=== PATIENT | female | born 1935 | race Caucasian/White ===

== ENCOUNTER → 2019-07-25 11:19 | Outpatient (CLI) | payer MEDICARE, SELFPAY ==
--- NOTE | ~2019-07-25 | DEXA_ITS ---
Bone Density Report Name: Alina Umaña Age: 83 Sex: Female Ethnicity: White Date of : 1935 Indication: postmenopausal osteoporosis; height loss; hysterectomy; Referring Provider: RO RAINES Study: Bone densitometry was performed. Exam Date: July 25, 2019 Accession number: [id number] Bone Density: Region BMD T-score Z-score Classification AP Spine (L1-L4) 0.864 -1.7 1.2 Osteopenia Femoral Neck (Left) 0.527 -2.9 -0.4 Osteoporosis Total Hip (Left) 0.607 -2.7 -0.5 Osteoporosis Femoral Neck (Right) 0.536 -2.8 -0.4 Osteoporosis Total Hip (Right) 0.625 -2.6 -0.3 Osteoporosis Total Hip Mean 0.616 -2.7 -0.4 Osteoporosis World Health Organization criteria for BMD impression classify patients as: Normal (T-score at or above -1.0), Osteopenia (T-score between -1.0 and -2.5), or Osteoporosis (T-score at or below -2.5). 10-year Fracture Risk: FRAX not reported because: Some T-score for Spine Total or Hip Total or Femoral Neck at or below -2.5 Previous Exams: Region Exam Age BMD T-score BMD Change BMD Change Date g/cm2 vs Baseline vs Previous AP Spine(L1-L4) 07/25/2019 83 0.864 -1.7 -0.028* -0.028* 04/11/2016 80 0.891 -1.4 Total Hip(Left) 07/25/2019 83 0.607 -2.7 -0.026 -0.026 04/11/2016 80 0.633 -2.5 Total Hip(Right) 07/25/2019 83 0.625 -2.6 -0.030* -0.030* 04/11/2016 80 0.656 -2.3 *Denotes significance at 95% confidence level, LSC for AP Spine = 0.022 g/cm2, LSC for Total Hip = 0.027 g/cm2 Clinical Information Provided by Patient: Has used the following medications: Vitamin D Has the following medical conditions: Hysterectomy Patient maximum height was 66 Menopause Age: 47 No regular weight bearing exercise Onset of menses at age 13 Number of children 0 Impression: The patient has osteoporosis, based on the Left Femoral Neck T-score. The BMD for the AP Spine(L1-L4) decreased, changing by -0.028 since the last DXA exam. The BMD for the Total Hip(Right) decreased, changing by -0.030 since the last DXA exam. Discussion: INCREASED RISK OF FRACTURE. BONE DENSITY IS UNDESIRABLY LOW AT ONE OR MORE SKELETAL SITES, CONSISTENT WITH POSTMENOPAUSAL OSTEOPOROSIS. This patient's lowest T-score meets the World Health Organization's (WHO) criteria for osteoporosis at one or more sites (T-score -2.5 or below). In untreated patients, the risk of osteoporotic fracture increases approximately
== END ==
PROVIDERS: PCP Internal Medicine; Visit Provider Nurse Practitioner
DX: M81.0 Age-related osteoporosis without current pathological fracture (principal); M85.88 Other specified disorders of bone density and structure, other site
CPT/HCPCS: 77080

== ENCOUNTER 2020-04-15 12:16 | Outpatient (CLI) | payer MEDICARE, SELFPAY ==
--- NOTE | ~2020-04-15 | MM_ITS ---
EXAMINATION: MM screening regina LT w astrid HISTORY: Screening TECHNIQUE: Craniocaudal and mediolateral oblique 3-D tomosynthesis images were obtained and synthetic 2-D images were generated. CAD analysis was submitted and interpreted. COMPARISON: Comparison to multiple prior studies sequentially, with oldest reviewed study dated 02/24. BREAST PARENCHYMAL COMPOSITION: There are scattered areas of fibroglandular density. FINDINGS: There is no evidence of suspicious mass, calcification, or architectural distortion to sugg est malignancy in the left breast. There has been no suspicious interval change. IMPRESSION: 1. No mammographic evidence of malignancy. 2. Recommend routine screening mammography in one year. BI-RADS Category 1: Negative Reviewed, dictated and finalized at location A. F DRIER
== END 2020-04-15 12:17 | disposition home or self-care (01) ==
PROVIDERS: PCP Internal Medicine; Visit Provider Internal Medicine
DX: Z12.31 Encounter for screening mammogram for malignant neoplasm of breast (principal)
CPT/HCPCS: 77063; 77067

== ENCOUNTER 2021-06-08 15:19 | Outpatient (CLI) | payer MEDICARE, SELFPAY ==
--- NOTE | ~2021-06-08 | MM_ITS ---
EXAMINATION: MM screening regina LT w astrid HISTORY: Screening TECHNIQUE: Craniocaudal and mediolateral oblique 3-D tomosynthesis images were obtained and synthetic 2-D images were generated. CAD analysis was submitted and interpreted. COMPARISON: Comparison to multiple prior studies sequentially, with oldest reviewed study dated 02/24. BREAST PARENCHYMAL COMPOSITION: There are scattered areas of fibroglandular density. FINDINGS: There are surgical changes in the upper outer quadrant. There is no evidence of suspicious mass, calcification, or architectural distortion to suggest malignancy in the left breast. There has been no suspicious interval change. IMPRESSION: 1. No mammographic evidence of malignancy. 2. Recommend routine screening mammography in one year. BI-RADS Category 2: Benign finding(s). Reviewed, dictated and finalized at location A. [employer] SUPERVISOR
== END 2021-06-08 15:20 | disposition home or self-care (01) ==
LOC: ANHIMG 15:21
PROVIDERS: PCP Internal Medicine; Visit Provider Nurse Practitioner
DX: Z12.31 Encounter for screening mammogram for malignant neoplasm of breast (principal)
CPT/HCPCS: 77063; 77067

== ENCOUNTER → 2022-04-21 09:52 | Outpatient (CLI) | payer MEDICARE, SELFPAY ==
--- NOTE | ~2022-04-21 | DEXA_ITS ---
Bone Density Report Name: KASHIF GABRIEL Age: 86 Sex: Female Ethnicity: White Date of : 1935 Indication: postmenopausal osteoporosis; monitoring treatment; height loss; hysterectomy; Referring Provider: Batsheva Hernandez Study: Bone densitometry was performed. Exam Date: April 21, 2022 Accession number: [id number] Bone Density: Region BMD T-score Z-score Classification AP Spine (L1-L4) 0.881 -1.5 1.4 Osteopenia Femoral Neck (Left) 0.531 -2.9 -0.3 Osteoporosis Total Hip (Left) 0.628 -2.6 -0.2 Osteoporosis Femoral Neck (Right) 0.549 -2.7 -0.2 Osteoporosis Total Hip (Right) 0.623 -2.6 -0.3 Osteoporosis Total Hip Mean 0.626 -2.6 -0.3 Osteoporosis World Health Organization criteria for BMD impression classify patients as: Normal (T-score at or above -1.0), Osteopenia (T-score between -1.0 and -2.5), or Osteoporosis (T-score at or below -2.5). 10-year Fracture Risk: FRAX not reported because: Some T-score for Spine Total or Hip Total or Femoral Neck at or below -2.5 Treated for osteoporosis Previous Exams: Region Exam Age BMD T-score BMD Change BMD Change Date g/cm2 vs Baseline vs Previous AP Spine(L1-L4) 04/21/2022 86 0.881 -1.5 -0.010 0.018 07/25/2019 83 0.864 -1.7 -0.028* -0.028* 04/11/2016 80 0.891 -1.4 Total Hip(Left) 04/21/2022 86 0.628 -2.6 -0.005 0.021 07/25/2019 83 0.607 -2.7 -0.026 -0.026 04/11/2016 80 0.633 -2.5 Total Hip(Right) 04/21/2022 86 0.623 -2.6 -0.033* -0.002 07/25/2019 83 0.625 -2.6 -0.030* -0.030* 04/11/2016 80 0.656 -2.3 *Denotes significance at 95% confidence level, LSC for AP Spine = 0.022 g/cm2, LSC for Total Hip = 0.027 g/cm2 Clinical Information Provided by Patient: Is being treated for osteoporosis Has used the following medications: Fosamax (i.e. alendronate), Vitamin D Has the following medical conditions: Hysterectomy, HX OF RIGHT BREAST CA MASTECTOMY -2014 WITH TAMOXIFEN Patient maximum height was 66.0 Menopause Age: 47 No regular weight bearing exercise Onset of menses at age 13 Number of children 0 Impression: The patient has osteoporosis, based on the Left Femoral Neck T-score. No significant bone loss was observed. Discussion: PATIENT UNDER TREATMENT WITH NO SIGNIFICANT BMD LOSS SINCE LAST EXAM. In an untreated patient, BMD typically declines with age. A lack
== END ==
PROVIDERS: PCP Internal Medicine; Visit Provider Nurse Practitioner
DX: M81.0 Age-related osteoporosis without current pathological fracture (principal); M85.88 Other specified disorders of bone density and structure, other site
CPT/HCPCS: 77080

== ENCOUNTER 2024-01-31 13:51 | Outpatient (CLI) | payer MEDICARE, SELFPAY ==
[2024-01-31 18:50] LABS: Basophils Absolute Auto 0.1 K/mm3 (0.0-0.1); Basophils Percent Auto 1.2 % (0.2-1.2); Eosinophils Absolute Auto 0.3 K/mm3 (0-0.3); Eosinophils Percent Auto 4.2 % (0-4.4); Hematocrit 44.4 % (37.0-47.0); Hemoglobin 14.2 g/dL (12.0-15.0); Immature Granulocyte Absolute 0.02 K/mm3 (0.00-0.031); Immature Granulocyte Percent A 0.3 % (0-0.5); Lymphocytes Absolute Auto 1.44 K/mm3 (0.9-3.2); Lymphocytes Percent Auto 24.4 % (18.3-44.2); Mean Corpuscular Hemoglobin 29.7 pg (26-34); Mean Corpuscular Volume 92.9 fl (80-100); Mean Platelet Volume 9.6 fl (7.4-10.4); Monocytes Absolute Auto 0.7 K/mm3 (0.1-0.6); Monocytes Percent Auto 12.4 % (2.6-8.5); Neutrophils Absolute Auto 3.4 K/mm3 (1.3-6.7); Neutrophils Percent Auto 57.5 % (45.5-73.1); Platelet Count Result 234 k/mm3 (150-375); Red Blood Count 4.78 M/mm3 (4.2-5.4); Red Cell Distribution Width 14.4 % (11.5-14.5); White Blood Count 5.9 K/mm3 (4.5-10.0)
[2024-01-31 19:22] LABS: Alanine Aminotransferase 15 U/L (6-35); Albumin Level 4.1 g/dL (3.5-5.1); Alkaline Phosphatase 76 U/L (38-126); Anion Gap 7 mmol/L (4-12); Aspartate Amino Transferase 48 U/L (14-36); Bilirubin,Total 0.7 mg/dL (0.2-1.3); Blood Urea Nitrogen 18 mg/dL (7-17); Calcium 9.7 mg/dL (8.4-10.2); Carbon Dioxide 32 mmol/L (22-30); Chloride 101 mmol/L (98-107); Estimated Glomerular Filt Rate 59; Glucose 110 mg/dL (65-110); Potassium 4.3 mmol/L (3.4-5.0); Sodium 140 mmol/L (137-145)
[2024-01-31 19:29] LABS: Vitamin D 25 Hydroxy 44.4 ng/mL
== END 2024-01-31 13:52 | disposition home or self-care (01) ==
LOC: ANHGOSHLAB 13:53
PROVIDERS: PCP Internal Medicine; Visit Provider Nurse Practitioner
DX: E55.9 Vitamin D deficiency, unspecified (principal); I10 Essential (primary) hypertension
CPT/HCPCS: 36415; 80053; 82306; 85025

== ENCOUNTER 2024-05-30 12:40 | Observation (INO) | payer MEDICARE, SELFPAY ==
[2024-05-30] VITALS (19 sets, daily range): BP systolic 141–197; BP diastolic 68–95; PULSE 53–90; RESP 11–19; TEMP 36.2–36.8; O2SAT 98–100; BMI 19.1
--- NOTE | ~2024-05-30 | XR_ITS ---
Clinical Indication: Syncope PA and lateral views of the chest: Comparison: 07/23/2014 Findings: The lungs are clear, without evidence of focal consolidation or pleural effusion. COPD will swati. Calcified left midlung granuloma noted. Cardiomediastinal silhouette is within normal limits. Mesfin jodee and soft tissues are unremarkable. Impression: No acute abnormality. COPD. Reviewed, dictated and finalized at location M. WARE PACKAGER Impression: No acute abnormality. COPD.
--- NOTE | ~2024-05-30 | CT_ITS ---
EXAMINATION: CT brain wo con DATE: 05/30/2024 23:50 INDICATION: Syncope. TECHNIQUE: Computed tomography (CT) of the head was performed without intravenous contrast. The mA wa s adjusted according to patient size. Iterative reconstruction technique was employed. The dose-lengt h product was 681.00 mGy-cm. COMPARISON: Head CT 07/23/2014 FINDINGS: There are scattered areas of low attenuation in the cerebral white matter, which is within normal limits for the patient's age. There are old lacunar infarcts in the bilateral basal ganglia. There is no intracranial hemorrhage, acute infarction, or abnormal intracranial mass lesion. The vent ricles are normal in size. There is mild mucosal thickening in the paranasal sinuses. There are surgi henrry changes of the right ocular globe. The mastoid air cells are normal. IMPRESSION: 1. 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 Reviewed, dictated and finalized at location A. WARE MANAGER
--- NOTE | 2024-05-30 12:44 | ECG_ITS ---
Test Date: 2024-05-30 12:58:54 Measurements Intervals [place] Rate: 54 P: 0 NE: 0 QRS: -16 QRSD: 82 T: 45 QT: 465 QTc: 443 Interpretive Statements SINUS BRADYCARDIA NONSPECIFIC T WAVE ABNORMALITY No previous ECG available for comparison Electronically Signed On 05-31-2024 11:56:31 [employer]UCK [employer]IVER by Aly Glasgow M.D.
[2024-05-30 13:18] LABS: Basophils Absolute Auto 0.1 K/mm3 (0.0-0.1); Basophils Percent Auto 0.9 % (0.2-1.2); Eosinophils Absolute Auto 0.2 K/mm3 (0-0.3); Eosinophils Percent Auto 2.7 % (0-4.4); Hematocrit 42.4 % (37.0-47.0); Hemoglobin 13.6 g/dL (12.0-15.0); Immature Granulocyte Absolute 0.02 K/mm3 (0.00-0.031); Immature Granulocyte Percent A 0.3 % (0-0.5); Lymphocytes Absolute Auto 1.26 K/mm3 (0.9-3.2); Lymphocytes Percent Auto 19.7 % (18.3-44.2); Mean Corpuscular HGB Conc 32.1 g/dl (32-36); Mean Corpuscular Hemoglobin 29.6 pg (26-34); Mean Corpuscular Volume 92.4 fl (80-100); Mean Platelet Volume 9.1 fl (7.4-10.4); Monocytes Absolute Auto 0.5 K/mm3 (0.1-0.6); Monocytes Percent Auto 8.5 % (2.6-8.5); Neutrophils Absolute Auto 4.3 K/mm3 (1.3-6.7); Neutrophils Percent Auto 67.9 % (45.5-73.1); Platelet Count Result 224 k/mm3 (150-375); Red Blood Count 4.59 M/mm3 (4.2-5.4); Red Cell Distribution Width 14.6 % (11.5-14.5); White Blood Count 6.4 K/mm3 (4.5-10.0)
[2024-05-30 13:28] LABS: Alanine Aminotransferase 17 U/L (6-35); Alkaline Phosphatase 76 U/L (38-126); Anion Gap 2 mmol/L (4-12); Aspartate Amino Transferase 25 U/L (14-36); Bilirubin,Total 0.7 mg/dL (0.2-1.3); Blood Urea Nitrogen 22 mg/dL (7-17); Calcium 9.4 mg/dL (8.4-10.2); Carbon Dioxide 31 mmol/L (22-30); Chloride 107 mmol/L (98-107); Estimated CRCL calculation 31 ml/min; Estimated Glomerular Filt Rate 52; Glucose 136 mg/dL (65-110); Magnesium 2.2 mg/dL (1.6-2.3); Potassium 4.4 mmol/L (3.4-5.0); Sodium 140 mmol/L (137-145)
[2024-05-30 13:40] LABS: Troponin I < 0.012 ng/mL (0.000-0.034)
[2024-05-30 13:55] LABS: Add Urine Microscopic? YES; Appearance Urine Clear (Clear); Bacteria Urine None Seen /hpf; Bilirubin Urine Negative (Negative); Blood Urine Negative (Negative); Color Urine Yellow (Yellow); Glucose Urine UA Negative (Negative); Ketones Urine Negative (Negative); Leukocyte Esterase Ur Trace LEU/UL (Negative); Nitrate Urine Negative (Negative); Protein Urine Trace mg/dL (Negative); RBC Urine 0-2 /hpf (0-2); Specific Grav Ur 1.016 (1.001-1.035); Squamous Epithelial Cell Urine None Seen /hpf (Few); Urobilinogen Urine 0.2 mg/dL (<2.0); WBC Urine 0-5 /hpf (0-3)
[2024-05-30 14:13] LABS: Prothrombin Time 13.7 Seconds (11.1-14.7)
[2024-05-30 14:14] LABS: Partial Thromboplastin Time 24.4 Seconds (22.3-36.8)
--- NOTE | 2024-05-30 15:07 | PC.NURSE ---
pt ambulates well with steady gait, no ambulatory devices required
--- NOTE | 2024-05-30 15:08 | ED_ITS ---
HPI - Syncope General Chief Complaint: Syncope Stated Complaint: syncope Time Seen by Provider: 05/30/24 12:40 History of Present Illness HPI narrative: Patient is an 80-year-old female who presents ER after having An episode of syncope at home. Patient was making lunch while sitting at a table when she told family members she felt weak. She then lost consciousness for 10 minutes. She had agonal breathing according the EMS. She then woke up without any intervention and was oriented x4. Accu-Chek normal. Patient denies any chest pain. No shortness of breath. No other prodromal symptoms over last few days. Related Data Home Medications ?Medication ?Instructions ?Recorded ?Confirmed ?Last Taken ?Type cholecalciferol (vitamin D3) 50 2,000 unit PO DAILY 07/09/19 05/30/24 05/30/24 History mcg (2,000 unit) capsule latanoprost 0.005 % eye drops 1 drop ophthalmic (eye) QPM 07/09/19 05/30/24 Unknown History timolol maleate 0.5 % eye drops 1 drop ophthalmic (eye) DAILY 07/09/19 05/30/24 Unknown History Allergies Allergy/AdvReac Type Severity Reaction Status Date / Time No Known Allergies Allergy Unknown Verified 05/30/24 17:44 Review of Systems 2 Review of Systems: All systems reviewed & are unremarkable except as noted in HPI and below Constitutional: Constitutional: Reports no additional constitutional complaints ENT: Reports system reviewed and no additional complaints, except as documented Cardiovascular: Cardiovascular: Reports no additional cardiovascular complaints Respiratory: Respiratory: Reports no additional respiratory complaints Gastrointestinal: Gastrointestinal: Reports no additional gastrointestinal complaints Neurologic: Reports syncope, Denies headache(s), Denies focal weakness and Denies numbness PMFSH Past Medical History Medical History Breast cancer Hand abrasion Stitches removed December 2018 Hypertension Vitamin D deficiency Surgical History Surgical History H/O mastectomy 2014 History of appendectomy History of cataract surgery 2014 History of surgical procedure on eye proper using laser 2018 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 of [place] Skin cancer removed from scalp 2018 History of tonsillectomy Status post surgical removal of malignant neoplasm of skin Family History Family History Sibling Family history of diabetes mellitus in first degree relative Family history of malignant neoplasm of breast in first degree relative Patient's sister is Family history of lung cancer Dementia sister put in memory care Father Emphysema of lung Mother TIA (transient ischemic attack) Social History Social History (Updated 01/31/24 @ 13:12 by Aminah Hernandes [facility]) Smoking status: Never smoker Second hand tobacco smoke exposure: No Alcohol intake: never Substance use: never Do You Feel Safe in your Home?: Yes Lack of Transportation: No Lack of Food: Never True Current Housing: I Have Housing Concerned About Future Housing: No Difficulty Paying Gas/Electric Bills: No Difficulty Paying for Meds: No Currently Unemployed: No Education: High School Diploma/GED Difficulty w/ Childcare or Family Care: No Spiritual care concerns: No Exam 2 Narrative: GENERAL: Well-appearing, well-nourished, and in no acute distress. HEAD: Normocephalic, atraumatic. ENT: Mucous membranes moist. NECK: Supple. CHEST: Clear to auscultation. No respiratory distress. HEART: Bradycardic and regular. Normal peripheral pulses. ABDOMEN: Soft, nontender, nondistended. EXTREMITIES: Normal range of motion. No edema. SKIN: Warm, dry, no rash. NEURO: Alert and oriented x3. PSYCH: Normal mood and affect. Course Course Emergency Course: Admit to hospitalist Service. No sinus pauses or arrhythmias here. will have Cardiology consulted. Vital Signs Vital signs: Vital Signs Temperature 98.3 F 05/30/24 12:39 Pulse Rate 55 L 05/30/24 12:39 Respiratory Rate 15 05/30/24 12:39 Blood Pressure 191/90 H 05/30/24 12:39 Pulse Oximetry 98 05/30/24 12:39 Oxygen Delivery Room Air 05/30/24 12:39 Temperature 97.4 F L 05/30/24 17:35 Pulse Rate 60 05/30/24 17:35 Respiratory Rate 15 05/30/24 17:35 Blood Pressure 197/84 H 05/30/24 17:35 Pulse Oximetry 99 05/30/24 17:35 Oxygen Delivery Room Air 05/30/24 18:00 MDM - Syncope Lab Data 05/30/24 13:10 05/30/24 13:10 Labs: Lab Results 05/30/24 05/30/24 Range/Units 13:10 13:48 WBC 6.4 (4.5-10.0) K/mm3 RBC 4.59 (4.2-5.4) M/mm3 Hgb 13.6 (12.0-15.0) g/dL Hct 42.4 (37.0-47.0) % MCV 92.4 (80-100) fl MCH 29.6 (26-34) pg MCHC 32.1 (32-36) g/dl RDW 14.6 H (11.5-14.5) % Plt Count 224 (150-375) k/mm3 MPV 9.1 (7.4-10.4) fl Immature Gran % (Auto) 0.3 (0-0.5) % Neut % (Auto) 67.9 (45.5-73.1) % Lymph % (Auto) 19.7 (18.3-44.2) % [place] % (Auto) 8.5 (2.6-8.5) % Eos % (Auto) 2.7 (0-4.4) % Baso % (Auto) 0.9 (0.2-1.2) % Lymph # (Auto) 1.26 (0.9-3.2) K/mm3 [place] # (Auto) 0.5 (0.1-0.6) K/mm3 Eos # (Auto) 0.2 (0-0.3) K/mm3 Baso # (Auto) 0.1 (0.0-0.1) K/mm3 Abs Immat Gran (auto) 0.02 (0.00-0.031) K/mm3 Absolute Neuts (auto) 4.3 (1.3-6.7) K/mm3 Absolute Nucleated RBC 0.000 (0.0-0.012) K/mm3 Nucleated RBC % 0.0 (0.0-0.2) % PT 13.7 (11.1-14.7) Seconds INR 1.0 APTT 24.4 (22.3-36.8) Seconds Sodium 140 (137-145) mmol/L Potassium 4.4 (3.4-5.0) mmol/L Chloride 107 (98-107) mmol/L Carbon Dioxide 31 H (22-30) mmol/L Anion Gap 2 L (4-12) mmol/L BUN 22 H (7-17) mg/dL Creatinine 1.00 (0.7-1.0) mg/dL Estim Creat Clear Calc 31 ml/min Estimated GFR 52 L (59 - ) Glucose 136 H (65-110) mg/dL Calcium 9.4 (8.4-10.2) mg/dL Magnesium 2.2 (1.6-2.3) mg/dL Total Bilirubin 0.7 (0.2-1.3) mg/dL AST 25 (14-36) U/L ALT 17 (6-35) U/L Alkaline Phosphatase 76 (38-126) U/L Troponin I < 0.012 (0.000-0.034) ng/mL Total Protein 7.0 (6.3-8.2) g/dL Albumin 4.0 (3.5-5.1) g/dL Urine Color Yellow (Yellow) Urine Appearance Clear (Clear) Urine pH 7.0 (5.0-9.0) Ur Specific [place] 1.016 (1.001-1.035) Urine Protein Trace (Negative) mg/dL Urine Glucose (UA) Negative (Negative) mg/dL Urine Ketones Negative (Negative) mg/dL Ur Blood (Man) Negative (Negative) Urine Nitrate Negative (Negative) Urine Bilirubin Negative (Negative) Urine Urobilinogen 0.2 (<2.0) mg/dL Leukocyte Esterase Rfl Trace H (Negative) KATIE/UL Urine RBC 0-2 (0-2) /hpf Urine WBC 0-5 (0-3) /hpf Ur Squamous Epith Cells None seen (Few) /hpf Urine Bacteria None seen /hpf Urine Casts 3-5 Imaging Data Radiologist's impression: ITS Impressions Chest X-Ray 05/30/24 14:12 Impression: No acute abnormality. COPD. ECG Data EKG #1: ECG completion date: 05/30/24 ECG completion time: 12:58 EKG Interpretation: bradycardia (54), sinus rhythm, non-specific ST changes, normal QRS, normal QT and left axis Discharge Plan Discharge Clinical Impression: Syncope Patient Disposition: Still a Patient Condition: Stable
--- NOTE | 2024-05-30 16:47 | PC.NURSE ---
updated family at 1633
--- NOTE | 2024-05-30 17:15 | ADMGEN ---
This patient, Alina Umaña, was admitted to Medical Room 261-01. Patient/family oriented to hospital policies and general routines including ID bracelet, bed and alarms, visiting hours, pain management, procedures, bathroom and other care routines, personal items, smoking policy, room service/diet, and visiting hours. Information on how to activate the Rapid Response Team has been discussed. Patient/Family are encouraged to report perceived risks to care and to ask questions if they do not understand what they are told or what they should do.
--- NOTE | 2024-05-30 18:04 | PM.IMHP ---
H&P: HPI History of Present Illness Date/Time: 05/30/24 18:04 Chief Complaint: Syncope Narrative: Patient is an 80-year-old female who presents ER after having An episode of syncope at home. Patient was making lunch while sitting at a table when she told family members she felt weak. She then lost consciousness for 10 minutes. She had agonal breathing according the EMS. She then woke up without any intervention and was oriented x4. Accu-Chek normal. Patient denies any chest pain. No shortness of breath. No other prodromal symptoms over last few days. Patient was evaluated at the bedside. As per patient he lives alone in the home and does all her ADLs without any assistance. Patient has a paraplegic daughter who she visited yesterday. During the visit patient felt very weak and she sat down in a chair. Later as per her daughter patient was completely loss of consciousness and her called 911. Patient reports she had a loss of consciousness about 10 minutes later during the ambulance she recovered her consciousness. During the time there was no evidence of any she is like activity or patient teen had any neurological weakness. Ordered CT scan of the head. I personally reviewed the EKG. Possible ileus a node dysfunction leading to bradycardia. Because of the symptomatic bradycardia spoke with Dr. Ibarra, and requested whether patient needs to be closely monitored in IMU. the difficulty the EKG and advised the patient to be on telemetry. Placed the patient on Tele med. Reviewing home medication patient does not take any cornelius blocking agents. Ordered TSH and CT head. Review of Systems Review of Systems: All systems reviewed & are unremarkable except as noted in HPI and below Constitutional: Constitutional: Reports no additional constitutional complaints and Denies headache(s) ENT: Reports system reviewed and no additional complaints, except as documented and Denies headache(s) Cardiovascular: Cardiovascular: Reports no additional cardiovascular complaints and Reports syncope Respiratory: Respiratory: Reports no additional respiratory complaints Gastrointestinal: Gastrointestinal: Reports no additional gastrointestinal complaints Musculoskeletal: Musculoskeletal: Denies numbness Neurologic: Reports syncope, Denies headache(s), Denies focal weakness and Denies numbness PMFSH Past Medical History Medical History Breast cancer Hand abrasion Stitches removed December 2018 Hypertension Vitamin D deficiency Surgical History Surgical History H/O mastectomy 2014 History of appendectomy History of cataract surgery 2014 History of surgical procedure on eye proper using laser 2018 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 of [place] region Skin cancer removed from scalp 2018 History of tonsillectomy Status post surgical removal of malignant neoplasm of skin Family History Family History Sibling Family history of diabetes mellitus in first degree relative Family history of malignant neoplasm of breast in first degree relative Patient's sister is Family history of lung cancer Dementia sister put in memory care Father Emphysema of lung Mother TIA (transient ischemic attack) Social History Social History (Updated 01/31/24 @ 13:12 by Aminah Hernandes [facility]) Smoking status: Never smoker Second hand tobacco smoke exposure: No Alcohol intake: never Substance use: never Do You Feel Safe in your Home?: Yes Lack of Transportation: No Lack of Food: Never True Current Housing: I Have Housing Concerned About Future Housing: No Difficulty Paying Gas/Electric Bills: No Difficulty Paying for Meds: No Currently Unemployed: No Education: High School Diploma/GED Difficulty w/ Childcare or Family Care: No Spiritual care concerns: No Meds Home Medications and Allergies Home Medications ?Medication ?Instructions ?Recorded ?Confirmed ?Type cholecalciferol (vitamin D3) 50 2,000 unit PO DAILY 07/09/19 05/30/24 History mcg (2,000 unit) capsule latanoprost 0.005 % eye drops 1 drop ophthalmic (eye) QPM 07/09/19 05/30/24 History timolol maleate 0.5 % eye drops 1 drop ophthalmic (eye) DAILY 07/09/19 05/30/24 History losartan 100 mg tablet 100 mg PO DAILY #90 tabs 01/31/24 05/30/24 Rx Allergies Allergy/AdvReac Type Severity Reaction Status Date / Time No Known Allergies Allergy Unknown Verified 05/30/24 17:44 Vital Signs Vital Signs - 24 hr 05/30/24 12:39 05/30/24 12:51 05/30/24 12:51 Temperature 98.3 F Pulse Rate 55 L 53 L Respiratory Rate 15 15 Blood Pressure 191/90 H Pulse Oximetry 98 98 99 Oxygen Delivery Room Air Room Air 05/30/24 13:01 05/30/24 13:21 05/30/24 13:41 Temperature Pulse Rate 57 L 54 L 58 L Respiratory Rate 15 13 17 Blood Pressure 184/73 H 171/80 H 146/68 H Pulse Oximetry 98 98 100 Oxygen Delivery 05/30/24 14:00 05/30/24 14:58 05/30/24 15:00 Temperature Pulse Rate 57 L 63 58 L Respiratory Rate 16 16 Blood Pressure 165/76 H 165/76 H Pulse Oximetry 98 99 Oxygen Delivery 05/30/24 15:02 05/30/24 15:03 05/30/24 15:04 Temperature Pulse Rate 68 62 70 Respiratory Rate 18 Blood Pressure 141/76 H 171/76 H 178/95 H Pulse Oximetry Oxygen Delivery 05/30/24 15:04 05/30/24 15:15 05/30/24 15:30 Temperature Pulse Rate 72 63 59 L Respiratory Rate 16 15 11 L Blood Pressure 178/95 H Pulse Oximetry 100 99 Oxygen Delivery 05/30/24 15:45 05/30/24 16:00 05/30/24 16:45 Temperature Pulse Rate 60 60 63 Respiratory Rate 19 16 15 Blood Pressure Pulse Oximetry 100 100 100 Oxygen Delivery 05/30/24 17:35 Temperature 97.4 F L Pulse Rate 60 Respiratory Rate 15 Blood Pressure 197/84 H Pulse Oximetry 99 Oxygen Delivery Exam Narrative: GENERAL: Well-appearing, well-nourished, and in no acute distress. HEAD: Normocephalic, atraumatic. ENT: Mucous membranes moist. NECK: Supple. CHEST: Clear to auscultation. No respiratory distress. HEART: Bradycardic and regular. Normal peripheral pulses. ABDOMEN: Soft, nontender, nondistended. EXTREMITIES: Normal range of motion. No edema. SKIN: Warm, dry, no rash. NEURO: Alert and oriented x3. PSYCH: Normal mood and affect. H&P: Results Labs Labs: Short CBC 05/30/24 Range/Units 13:10 WBC 6.4 (4.5-10.0) K/mm3 Hgb 13.6 (12.0-15.0) g/dL Hct 42.4 (37.0-47.0) % Plt Count 224 (150-375) k/mm3 [facility] 05/30/24 13:10 Sodium 140 Potassium 4.4 Chloride 107 Carbon Dioxide 31 H BUN 22 H Creatinine 1.00 Glucose 136 H Calcium 9.4 Cardiac Enzymes 05/30/24 Range/Units 13:10 Troponin I < 0.012 (0.000-0.034) ng/mL Liver Function 05/30/24 Range/Units 13:10 Total Bilirubin 0.7 (0.2-1.3) mg/dL AST 25 (14-36) U/L ALT 17 (6-35) U/L Alkaline Phosphatase 76 (38-126) U/L Albumin 4.0 (3.5-5.1) g/dL Urine 05/30/24 Range/Units 13:48 Urine Color Yellow (Yellow) Urine Appearance Clear (Clear) Urine pH 7.0 (5.0-9.0) Ur Specific [place] 1.016 (1.001-1.035) Urine Protein Trace (Negative) mg/dL Urine Glucose (UA) Negative (Negative) mg/dL Assessment and Plan Assessment and plan (1) Syncope: Code(s): R55 - Syncope and collapse Status: Acute (2) Hypertension: Qualifiers: Hypertension type: essential hypertension Qualified Code(s): I10 - Essential (primary) hypertension Code(s): I10 - Essential (primary) hypertension Status: Acute Plan #Bradycardia Reviewed EKG Reviewed home medication-not any cornelius blocking agents Reviewed electrolytes No evidence of ortho TSH ordered On tele Cardiology consulted #HTN Continue losartan 100 mg Hydralazine 10 mg p.r.n. if blood pressure greater than 160/90 DVT prophylaxia: Lovenox 40 mg subq Hospitalist MIPS Advance Care Plan I have confirmed that the patient's Advanced Care Plan is present, code status is documented, or surrogate decision maker is listed in patient medical record.: Yes Medication Reconciliation I have utilized all available resources to obtain, update and review the patients current medications (includes all prescriptions, OTC, herbals, cannabis, and nutritional supplements).: Yes
[2024-05-30] MEDS: hydrALAZINE HCL 20 MG/ML VIAL 10 MG IV PUSH (18:35)
[2024-05-31] VITALS (8 sets, daily range): BP systolic 147–160; BP diastolic 70–82; PULSE 72–89; RESP 18; TEMP 36.3–36.5; O2SAT 98–100
[2024-05-31 06:20] LABS: Hematocrit 39.2 % (37.0-47.0); Hemoglobin 12.7 g/dL (12.0-15.0); Mean Corpuscular HGB Conc 32.4 g/dl (32-36); Mean Corpuscular Hemoglobin 29.5 pg (26-34); Platelet Count Result 220 k/mm3 (150-375); Red Blood Count 4.31 M/mm3 (4.2-5.4); Red Cell Distribution Width 14.7 % (11.5-14.5); White Blood Count 6.6 K/mm3 (4.5-10.0)
[2024-05-31 06:33] LABS: Alanine Aminotransferase 14 U/L (6-35); Albumin Level 3.4 g/dL (3.5-5.1); Alkaline Phosphatase 64 U/L (38-126); Anion Gap 1 mmol/L (4-12); Aspartate Amino Transferase 22 U/L (14-36); Bilirubin,Total 0.8 mg/dL (0.2-1.3); Blood Urea Nitrogen 24 mg/dL (7-17); Calcium 9.2 mg/dL (8.4-10.2); Carbon Dioxide 30 mmol/L (22-30); Chloride 108 mmol/L (98-107); Estimated CRCL calculation 32 ml/min; Estimated Glomerular Filt Rate 59; Glucose 97 mg/dL (65-110); Potassium 4.5 mmol/L (3.4-5.0); Sodium 139 mmol/L (137-145)
--- NOTE | 2024-05-31 07:52 | P.CONCA_ITS ---
Assessment and Plan Assessment and plan (1) Syncope: Code(s): R55 - Syncope and collapse Status: Acute Assessment and Plan: Probably orthostatic syncope or vasovagal. Telemetry shows no pauses/significant bradycardia. Obtain echo. Obtain event monitor. Advise to keep well hydrated drinking at least 1.5 l/day of water. If echo is OK and has event monitor placed, may d/c home from cardiology standpoint and f/u with me in 3 weeks. (2) Hypertension: Qualifiers: Hypertension type: essential hypertension Qualified Code(s): I10 - Essential (primary) hypertension Code(s): I10 - Essential (primary) hypertension Status: Acute Assessment and Plan: High. Monitor. History of Present Illness History of Present Illness Consult date/time: 05/31/24 07:52 Reason For Visit: Syncope Narrative: 88 yr old woman presents to ER with syncope. She has a history of hypertension. Reports she was at her daughter's house fixing lunch at the counter when she felt weak so she went to sit down. Then she passed out. She did not hurt herself and may have slumped forward on table. States she may have felt some dizziness prior to it. Her daughter who is a paraplegic witnessed it. She drinks mostly decaf coffee a day. She is able to walk a few blocks without any problems. Denies chest pain, sob, palpitations, edema. Review of Systems 2 Review of Systems: All systems reviewed & are unremarkable except as noted in HPI and below Constitutional: Constitutional: Reports as per HPI, Denies chills and Denies fever(s) Cardiovascular: Cardiovascular: Reports as per HPI, Denies chest pain and Denies irregular heart rhythm Respiratory: Respiratory: Reports as per HPI and Denies dyspnea Gastrointestinal: Gastrointestinal: Reports as per HPI and Denies abdominal pain Genitourinary: Genitourinary: Reports as per HPI and Denies dysuria Musculoskeletal: Musculoskeletal: Reports as per HPI Neurologic: Reports as per HPI, Reports dizziness and Reports syncope [facility] Past Medical History Medical History Breast cancer Hand abrasion Stitches removed December 2018 Hypertension Vitamin D deficiency Surgical History Surgical History H/O mastectomy 2015 History of appendectomy History of cataract surgery 2014 History of surgical procedure on eye proper using laser 2018 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 Skin cancer removed from scalp 2019 History of tonsillectomy Status post surgical removal of malignant neoplasm of skin Family History Family History (Reviewed 01/31/24 @ 12:57 by Aminah Hernandes [facility]) Sibling Family history of diabetes mellitus in first degree relative Family history of malignant neoplasm of breast in first degree relative Patient's sister is Family history of lung cancer Dementia sister put in memory care Father Emphysema of lung Mother TIA (transient ischemic attack) Social History Social History (Updated 01/31/24 @ 13:12 by Aminah Hernandes [facility]) Smoking status: Never smoker Second hand tobacco smoke exposure: No Alcohol intake: never Substance use: never Do You Feel Safe in your Home?: Yes Lack of Transportation: No Lack of Food: Never True Current Housing: I Have Housing Concerned About Future Housing: No Difficulty Paying Gas/Electric Bills: No Difficulty Paying for Meds: No Currently Unemployed: No Education: High School Diploma/GED Difficulty w/ Childcare or Family Care: No Spiritual care concerns: No Meds Home Medications and Allergies Home Medications ?Medication ?Instructions ?Recorded ?Confirmed ?Type cholecalciferol (vitamin D3) 50 2,000 unit PO DAILY 07/09/19 05/30/24 History mcg (2,000 unit) capsule latanoprost 0.005 % eye drops 1 drop ophthalmic (eye) QPM 07/09/19 05/30/24 History timolol maleate 0.5 % eye drops 1 drop ophthalmic (eye) DAILY 07/09/19 05/30/24 History losartan 100 mg tablet 100 mg PO DAILY #90 tabs 01/31/24 05/30/24 Rx Allergies Allergy/AdvReac Type Severity Reaction Status Date / Time No Known Allergies Allergy Unknown Verified 05/30/24 17:44 Vital Signs Vital Signs - 24 hr 05/30/24 12:39 05/30/24 12:51 05/30/24 12:51 Temperature 98.3 F Pulse Rate 55 L 53 L Respiratory Rate 15 15 Blood Pressure 191/90 H Pulse Oximetry 98 98 99 Oxygen Delivery Room Air Room Air 05/30/24 13:01 05/30/24 13:21 05/30/24 13:41 Temperature Pulse Rate 57 L 54 L 58 L Respiratory Rate 15 13 17 Blood Pressure 184/73 H 171/80 H 146/68 H Pulse Oximetry 98 98 100 Oxygen Delivery 05/30/24 14:00 05/30/24 14:58 05/30/24 15:00 Temperature Pulse Rate 57 L 63 58 L Respiratory Rate 16 16 Blood Pressure 165/76 H 165/76 H Pulse Oximetry 98 99 Oxygen Delivery 05/30/24 15:02 05/30/24 15:03 05/30/24 15:04 Temperature Pulse Rate 68 62 70 Respiratory Rate 18 Blood Pressure 141/76 H 171/76 H 178/95 H Pulse Oximetry Oxygen Delivery 05/30/24 15:04 05/30/24 15:15 05/30/24 15:30 Temperature Pulse Rate 72 63 59 L Respiratory Rate 16 15 11 L Blood Pressure 178/95 H Pulse Oximetry 100 99 Oxygen Delivery 05/30/24 15:45 05/30/24 16:00 05/30/24 16:45 Temperature Pulse Rate 60 60 63 Respiratory Rate 19 16 15 Blood Pressure Pulse Oximetry 100 100 100 Oxygen Delivery 05/30/24 17:35 05/30/24 18:00 05/30/24 19:31 Temperature 97.4 F L 97.2 F L Pulse Rate 60 90 Respiratory Rate 15 16 Blood Pressure 197/84 H 167/82 H Pulse Oximetry 99 100 Oxygen Delivery Room Air 05/30/24 20:00 05/30/24 20:00 05/31/24 00:00 Temperature Pulse Rate 89 89 Respiratory Rate Blood Pressure Pulse Oximetry Oxygen Delivery Room Air 05/31/24 04:00 05/31/24 05:15 Temperature 97.7 F Pulse Rate 77 77 Respiratory Rate 18 Blood Pressure 147/70 H Pulse Oximetry 98 Oxygen Delivery Exam 2 Const: General: cooperative, healthy appearing and comfortable Resp: Auscultation: clear to auscultation bilaterally, no crackles, no rales, no rhonchi and no wheezes Cardio: Rate: regular rate Rhythm: regular rhythm Heart sounds: no murmurs Peripheral pulses: dorsalis pedis present GI: GI Palp: No abdominal tenderness and Yes Soft to palpation Neuro: General: oriented to person, oriented to place and oriented to time Extrem: Right lower extremity: no edema Left lower extremity: no edema Results Labs and Meds 05/31/24 06:04 05/31/24 06:04 Lab results: Cardiac Enzymes 05/30/24 05/31/24 Range/Units 13:10 06:04 AST 25 22 (14-36) U/L Troponin I < 0.012 (0.000-0.034) ng/mL Coagulation 05/30/24 Range/Units 13:10 PT 13.7 (11.1-14.7) Seconds APTT 24.4 (22.3-36.8) Seconds CBC 05/30/24 05/31/24 Range/Units 13:10 06:04 WBC 6.4 6.6 (4.5-10.0) K/mm3 RBC 4.59 4.31 (4.2-5.4) M/mm3 Hgb 13.6 12.7 (12.0-15.0) g/dL Hct 42.4 39.2 (37.0-47.0) % Plt Count 224 220 (150-375) k/mm3 Lymph # (Auto) 1.26 (0.9-3.2) K/mm3 Bradley # (Auto) 0.5 (0.1-0.6) K/mm3 Eos # (Auto) 0.2 (0-0.3) K/mm3 Baso # (Auto) 0.1 (0.0-0.1) K/mm3 Comprehensive Metabolic Panel 05/30/24 05/31/24 Range/Units 13:10 06:04 Sodium 140 139 (137-145) mmol/L Potassium 4.4 4.5 (3.4-5.0) mmol/L Chloride 107 108 H (98-107) mmol/L Carbon Dioxide 31 H 30 (22-30) mmol/L BUN 22 H 24 H (7-17) mg/dL Creatinine 1.00 0.90 (0.7-1.0) mg/dL Glucose 136 H 97 (65-110) mg/dL Calcium 9.4 9.2 (8.4-10.2) mg/dL AST 25 22 (14-36) U/L ALT 17 14 (6-35) U/L Alkaline Phosphatase 76 64 (38-126) U/L Total Protein 7.0 6.0 L (6.3-8.2) g/dL Albumin 4.0 3.4 L (3.5-5.1) g/dL Intake and Output 05/30/24 05/30/24 05/31/24 15:59 23:59 07:59 Intake Total 0 550 Balance 0 550 Intake: Oral 0 550 Other: # Unmeasured Voids 1 2
[2024-05-31] MEDS: LOSARTAN POTASSIUM 100 MG TABLET PO (08:14)
[2024-05-31] MEDS: ENOXAPARIN 40 MG/0.4 ML SYRINGE SUB-Q (08:14)
[2024-05-31] MEDS: TIMOLOL MALEATE 0.5% OP SOLN 5 ML BOTTLE 1 DROP EACH EYE (08:52)
--- NOTE | 2024-05-31 12:30 | ECHO_ITS ---
Patient Info Name: Alina Umaña Age: 88 years : 1935 Gender: Female Ht: 66 in Wt: 118 lbs BSA: 1.57 m2 HR: 70 bpm BP: 160 / 82 mmHg Heart Rhythm: Sinus Rhythm Technical Quality: Good Exam Date: 05/31/2024 1:32 PM Exam Location: Echo Lab Exam Room: [facility] Patient Status: Outpatient Admit Date: 05/30/2024 Staff Ordering Physician: Siddhartha Ibarra DO News Clerk: Sophie Leiva RDCS Attending Provider: Wilner Magaña MD Referring Physician: Fred CHO; Exam Type: CA echo doppler color flow Study Info Complete two-dimensional, color flow and Doppler transthoracic echocardiogram is performed. Summary 1. Complete two-dimensional, color flow and Doppler transthoracic echocardiogram is performed. 2. Left ventricular chamber dimension is normal. 3. Left ventricular systolic function is normal, estimated at 60-65%. 4. The left ventricular diastolic function is grade I diastolic dysfunction. 5. E/e' 11 is mildly elevated. 6. There is mild aortic valve sclerosis. 7. There is trace mitral valve regurgitation. 8. There is trace tricuspid valve regurgitation. 9. No pulmonary hypertension, estimated pulmonary arterial systolic pressure is 29 mmHg. 10. The prox ascending aorta size is mildly dilated at 4.2 cm. Left Ventricle E/e' 11 is mildly elevated. Left ventricular chamber dimension is normal. Left ventricular systolic function is normal, estimated at 60-65%. The left ventricular diastolic function is grade I diastolic dysfunction. Right Ventricle Right ventricular systolic function is normal and with normal TAPSE 2.6 cm.. Right ventricular chamber dimension is normal. Left Atria Left atrial chamber dimension is normal. Right Atria Right atrial chamber dimension is normal. Aortic Valve The aortic valve is trileaflet. There is mild aortic valve sclerosis. There is no aortic valve stenosis. There is trace aortic valve regurgitation. Pulmonic Valve There is no pulmonic regurgitation. Mitral Valve There is no mitral valve stenosis. There is trace mitral valve regurgitation. Tricuspid Valve There is trace tricuspid valve regurgitation. No pulmonary hypertension, estimated pulmonary arterial systolic pressure is 29 mmHg. Pericardium/Pleural There is no pericardial effusion. Inferior Vena Cava Normal inferior vena cava with >50% collapse upon inspiration consistent with normal right atrial pressure, 5 mmHg. Aorta The prox ascending aorta size is mildly dilated at 4.2 cm. The aortic root size at the sinus of Valsalva is normal. Pulmonic Valve Name Value Normal PV Doppler PV Peak Gradient 6 mmHg PV Regurgitation Doppler PA Peak End Diastolic Velocity 74 cm/s Mitral Valve Name Value Normal MV Doppler MV Decel [place] 293 cm/s2 MV PHT 67 ms MV Area (PHT) 3.3 cm2 4.0-5.0 MV Diastolic Function MV E Peak Velocity 68 cm/s MV A Peak Velocity 115 cm/s MV E/A 0.6 MV Decel Time 232 ms MV Annular TDI MV E/e' (Septal) 15.4 <=8.0 MV E/e' (Lateral) 9.4 <=8.0 MV E/e' (Average) 12.4 Tricuspid Valve Name Value Normal TV Regurgitation Doppler TR Peak Velocity 246 cm/s TR Peak Gradient 18 mmHg Estimated PAP/RSVP RA Pressure 5 mmHg <=5 PA Systolic Pressure 29 mmHg <36 RV Systolic Pressure 29 mmHg <36 Aortic Valve Name Value Normal AV Doppler AV Peak Velocity 130 cm/s AV Peak Gradient 7 mmHg AV Mean Gradient 4 mmHg AV VTI 28 cm AV Regurgitation Doppler AR Decel Time 1,388 ms AR Decel [place] 375 cm/s2 AR PHT 402 ms Ventricles Name Value Normal LV Dimensions 2D/MM IVS Diastolic Thickness (2D) 0.6 cm 0.6-1.0 LVID Diastole (2D) 4.2 cm 3.8-5.2 LVIW Diastolic Thickness (2D) 0.7 cm 0.6-0.9 LVID Systole (2D) 2.8 cm 2.2-3.5 LV Mass (2D Cubed) 78.42 g 67.00-162.00 LV Mass Index (2D Cubed) 50 g/m2 43-95 Relative Wall Thickness (2D) 0.34 LV Fractional Shortening/Ejection Fraction 2D/MM LV Fractional Shortening (2D) 33 % 27-45 LV EF (2D Teicholz) 62 % 54-74 LV Diastolic Volume (4C MOD) 91 ml LV EF (4C MOD) 66 % LV Diastolic Length (4C) 7.8 cm LV Systolic Length (4C) 5.9 cm LV Stroke Volume (4C MOD) 62 ml Atria Name Value Normal LA Dimensions LA Volume (4C A-L) 47 ml RA Dimensions RA Area (4C) 12.3 cm2 <=18.0 Report Signatures
--- NOTE | 2024-05-31 15:04 | P.DS_ITS ---
DS: Admitting Diagnosis Discharge Date 05/31/2024 Admitting Diagnosis Syncope DS: Discharge Diagnosis Discharge Diagnosis (1) Syncope: Code(s): R55 - Syncope and collapse Status: Acute (2) Hypertension: Qualifiers: Hypertension type: essential hypertension Qualified Code(s): I10 - Essential (primary) hypertension Code(s): I10 - Essential (primary) hypertension Status: Acute Plan Please refer hospital course for brief summary #Bradycardia Reviewed EKG Reviewed home medication-not any cornelius blocking agents Reviewed electrolytes No evidence of ortho TSH ordered On tele Cardiology consulted #HTN Continue losartan 100 mg Hydralazine 10 mg p.r.n. if blood pressure greater than 160/90 DVT prophylaxia: Lovenox 40 mg subq DS: Summary Hospital Course Hospital Course: Patient is an 80-year-old female who presents ER after having An episode of syncope at home. Patient was making lunch while sitting at a table when she told family members she felt weak. She then lost consciousness for 10 minutes. She had agonal breathing according the EMS. She then woke up without any intervention and was oriented x4. Accu-Chek normal. Patient denies any chest pain. No shortness of breath. No other prodromal symptoms over last few days. Patient was evaluated at the bedside. As per patient he lives alone in the home and does all her ADLs without any assistance. Patient has a paraplegic daughter who she visited yesterday. During the visit patient felt very weak and she sat down in a chair. Later as per her daughter patient was completely loss of con sciousness and her called 911. Patient reports she had a loss of consciousness about 10 minutes later during the ambulance she recovered her consciousness. During the time there was no evidence of any she is like activity or patient teen had any neurological weakness. Ordered CT scan of the head. I personally reviewed the EKG. Possible ileus a node dysfunction leading to bradycardia. Because of the symptomatic bradycardia spoke with Dr. Ibarra, and requested whether patient needs to be closely monitored in IMU. the difficulty the EKG and advised the patient to be on telemetry. Placed the patient on Tele med. Reviewing home medication patient does not take any cornelius blocking agents. TSH is normal. CT head shows Old lacunar infarcts in the bilateral basal ganglia.Cardiology consulted and event monitor placed, october d/c home from cardiology standpoint and f/u with him in 3 weeks.ECHO is shows Left ventricular systolic function is normal, estimated at 60-65.. Status at Discharge Cognitive/behavioral status at discharge: Stable Time Spent with Patient Time attestation: Total time spent providing and/or coordinating discharge services: 45 minutes Exam Narrative: GENERAL: Well-appearing, well-nourished, and in no acute distress. HEAD: Normocephalic, atraumatic. ENT: Mucous membranes moist. NECK: Supple. CHEST: Clear to auscultation. No respiratory distress. HEART: Bradycardic and regular. Normal peripheral pulses. ABDOMEN: Soft, nontender, nondistended. EXTREMITIES: Normal range of motion. No edema. SKIN: Warm, dry, no rash. NEURO: Alert and oriented x3. PSYCH: Normal mood and affect. DS: Data Data Completed and Pending Labs on day of discharge: Labs from last 24 hours 05/31/24 05/30/24 06:04 21:19 WBC 6.6 RBC 4.31 Hgb 12.7 Hct 39.2 MCV 91.0 MCH 29.5 MCHC 32.4 RDW 14.7 H Plt Count 220 MPV 9.0 Sodium 139 Potassium 4.5 Chloride 108 H Carbon Dioxide 30 Anion Gap 1 L BUN 24 H Creatinine 0.90 Estim Creat Clear Calc 32 Estimated GFR 59 Glucose 97 Calcium 9.2 Total Bilirubin 0.8 AST 22 ALT 14 Alkaline Phosphatase 64 Total Protein 6.0 L Albumin 3.4 L TSH (Reflex) 2.500 Discharge Plan Discharge Attending physician on discharge: Klaus Carter Consulting providers: Siddhartha Ibarra Discharging Clinician: Klaus Carter Activity: as tolerated Diet: regular Discharge Instructions: Advised to follow-up with the in 3 weeks In the event of loss of consciousness, palpitation, chest pain seek immediate medical care. Patient Language: Cambodian Discharge Medications: Continued latanoprost 0.005 % drops 1 drop EACH EYE QPM timolol maleate 0.5 % drops 1 drop EACH EYE DAILY cholecalciferol (vitamin D3) 50 mcg (2,000 unit) capsule 2,000 unit PO DAILY losartan 100 mg tablet 100 mg PO DAILY Qty: 90 1RF Date of admission: 05/30/24 16:15 Primary Care Provider: Jose Mark Admitting Provider: Wilner Magaña Attending physician on admission: Wilner Magaña Condition: Stable
[2024-05-31] MEDS: LATANOPROST 0.005% OP SOLN 2.5 ML BTL 1 DROP EACH EYE (17:00)
== END 2024-05-31 17:55 | disposition home or self-care (01) ==
LOC: ANHED 16:56 → ANH2MED 05-31 10:35
PROVIDERS: Admitting Provider Internal Medicine; Emergency Provider Emergency Medicine; PCP Internal Medicine; Visit Provider General Practice
DX: R55 Syncope and collapse (principal); R00.1 Bradycardia, unspecified; I10 Essential (primary) hypertension; E55.9 Vitamin D deficiency, unspecified; Z79.899 Other long term (current) drug therapy; Z85.3 Personal history of malignant neoplasm of breast; Z98.890 Other specified postprocedural states
CPT/HCPCS: 36415; 70450; 71046; 80053; 81001; 83735; 84443; 84484; 85025; 85027; 85610; 85730; 93005; 93306; 96372; 96374; 99285; A9270; G0378; J0360; J1650

== ENCOUNTER 2024-07-19 09:34 | Outpatient (CLI) | payer MEDICARE, SELFPAY ==
--- NOTE | ~2024-07-19 | MR_ITS ---
EXAMINATION: MR brain/brain stem wo/w con DATE: 07/19/2024 10:50 INDICATION: Syncope and collapse. TECHNIQUE: Magnetic resonance imaging (MRI) of the brain and brainstem was performed without and with 10 mL MultiHance intravenous contrast. COMPARISON: Head CT 05/30/2024 FINDINGS: There are scattered areas of nonspecific increased T2-weighted signal intensity in the cere bral white matter, which is within normal limits for the patient's age. There are old lacunar infarct s in the bilateral basal ganglia. There is no intracranial hemorrhage, acute infarction, or abnormal intracranial mass lesion. The ventricles are normal in size. There are likely changes of right ocular lens replacement surgery. There is mild mucosal thickening in the paranasal sinuses. The mastoid air cells are normal. IMPRESSION: 1. 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 Reviewed, dictated and finalized at location A. Y CHILDHOOD ASSISTANT
--- NOTE | ~2024-07-19 | US_ITS ---
EXAMINATION: US carotid duplex BI DATE: 07/19/2024 10:17 INDICATION: Syncope and collapse TECHNIQUE: Grayscale, color Doppler, and pulsed Doppler images of the cervical carotid arteries were obtained. The degree of vessel stenosis is placed in one of the following categories: normal, <50%, 5 0-69%, >=70% but less than near-occlusion, near-occlusion, or total occlusion. Note that percent sten osis relative to normal distal artery lumen diameter is indirectly measured from velocity measurement s as described by Jeffrey, et al. Radiology 2003; 229:340-346. COMPARISON: None. FINDINGS: RIGHT: The right common carotid artery (CCA) peak systolic velocity (PSV) is 51 cm/s. The right internal car otid artery (ICA) PSV is 87 cm/s. The right ICA end-diastolic velocity (EDV) is 18 cm/s. The right IC A/CCA PSV ratio is 1.7. Grayscale and color Doppler images yield an estimate of <50% diameter reducti on from plaque in the ICA. The external carotid artery (ECA) PSV is 43 cm/s. There is antegrade flow in the right vertebral artery. LEFT: The left CCA PSV is 51 cm/s. The left ICA PSV is 64 cm/s. The left ICA EDV is 15 cm/s. The left ICA/C CA PSV ratio is 1.3. Grayscale and color Doppler images yield an estimate of <50% diameter reduction from plaque in the ICA. The ECA PSV is 66 cm/s. There is antegrade flow in the left vertebral artery. IMPRESSION: 1. <50% stenosis in the right internal carotid artery. 2. <50% stenosis in the left internal carotid artery. Reviewed, dictated and finalized at location B. RIALS COORDINATOR
--- OUTSIDE RECORDS SUMMARY | 2024-07-19 10:20 | XMS_ITS | Encounter Summary ---
Author Organization [facility] Address [address] [address] Care Team Providers Care Tire Builder Name Role Phone Unavailable Primary Care Provider Unavailabl e Encounter Details Date Type Department Care Team (Late st Contact Info) Description 01/07/2021 Lab Requisition [facility] DermPath Lab [address] [place] [id number] Tommy Young MD [address] [place] [address] Social History Tobacco Use Types Packs/Day Years Used Date Smoking Tobacco: Never Assessed Sex and Gender Information Value Date Recorded Sex Assigned at Not on file Gender Identity Not on file Sexual Orientation Not on file documented as of this encounter Plan of Treatment Not on file documented as of this encounter Procedures Procedure Name Priority Date/Time Associated Diagnosis Comments DERMATOPATHOLOGY Routine 01/05/2021 12:0 0 AM CDT documented in this encounter Results * DERMATOPATHOLOGY (01/05/2021 12:00 AM CDT) Case Report Dermatopathology Report Case: [id number] Authorizing Provider: Tommy Young MD Collected: 01/05/2021 12:00 AM Ordering Location: [facility] DermPath Lab Received: 01/07/2021 08:45 AM Pathologist: Jaimee Tapia MD Specimen: Skin, right vertex 4:44 PM CDT DERMATOPATHOLOGY LABORATORY Final Diagnosis Specimen A. 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 See [id number] 4:44 PM CDT DERMATOPATHOLOGY LABORATORY Gross Description Specimen A: Received is one formalin filled container labeled with the patient's name and designated right vertex. The specimen consists of a curettage and desiccation biopsy measuring 88x09g2 mm. Jar 0. 4:44 PM CDT DERMATOPATHOLOGY LABORATORY Microscopic Description Specimen A. SKIN, right vertex: There is an ulcer, beneath which there are vascular proliferation, fibroblasts, and an edematous stroma. Additional deeper sections were obtained and reviewed. COMMENT: There is mild atypia at the edge of the ulceration which is favored to be reactive. No definitive residual squamous cell carcinoma in situ is appreciated. 4:44 PM CDT DERMATOPATHOLOGY LABORATORY Disclaimer An external and internal positive and negative controls are appropriate for the histochemical, immunohistochemical and immunofluorescence stain(s) in this case (if any), except where stated explicitly. The performance characteristics of the stain(s) cited in this report were developed and its performance characteristic determined by the Dermatopathology Laboratory at [facility], directed by Dr. Ronen Ye. These tests need not be, and therefore are not, approved by the [place] Food and Drug Administration. The tests are used for clinical purposes. Billing Codes Specimen Charges Stain Charges 22484 1 4:44 PM CDT DERMATOPATHOLOGY LABORATORY Embedded Images 4:44 PM CDT DERMATOPATHOLOGY LABORATORY Pathology/Cytolog y TISSUE SPECIMEN FROM SKIN / Unknown 01/05/2021 01/07/2021 8:45 AM CDT Tommy Young MD LAB - PATHOLOGY/CYTO LOGY ORDERABLES DERMATOPATHOLOGY LABORATORY [facility] - Department of Dermatology [address], [address] [phone] documented in this encounter Visit Diagnoses Not on filedocumented in this encounter
--- OUTSIDE RECORDS SUMMARY | 2024-07-19 10:20 | XMS_ITS | Encounter Summary ---
Author Organization [facility] Address [address] [place] [address] Care Team Providers Care Building Energy Consultant Name Role Phone Unavailable Primary Care Provider Unavailabl e Encounter Details Date Type Department Care Team (Late st Contact Info) Description 09/30/2021 Lab Requisition [facility] DermPath Lab [address] [facility] [place] [phone] Tommy Young MD [address] [place] [address] Social History Tobacco Use Types [...] Priority Date/Time Associated Diagnosis Comments DERMATOPATHOLOGY Routine 09/29/2021 12:0 0 AM CDT documented in this encounter Results * DERMATOPATHOLOGY (09/29/2021 12:00 AM CDT) Case Report Dermatopathology Report Case: [id number] Authorizing Provider: Tommy Young MD Collected: 09/29/2021 12:00 AM Ordering Location: [facility] Derm[facility] Lab Received: 09/30/2021 11:47 AM Pathologist: August Ye MD Specimens: A) - Skin, left of midline vertex scalp B) - Skin, left vertex scalp C) - Skin, posterior vertex scalp 2 2:55 PM CDT DERMATOPATHOLOGY LABORATORY Final Diagnosis Specimen A. 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 Blank's 2 2:55 PM T DERMATOPATHOLOGY LABORATORY Gross Description Specimen A: Received is one formalin filled container labeled with the patient's name and designated left of midline vertex scalp. The specimen consists of a shave biopsy measuring 65p09b4om and it is bisected. Jar 0. Specimen B: Received is one formalin filled container labeled with the patient's name and designated left vertex scalp. The specimen consists of a shave biopsy measuring 31h7j8mb. Jar 0. Specimen C: Received is one formalin filled container labeled with the patient's name and designated posterior vertex scalp. The specimen consists of a shave biopsy measuring 0f59x7pl. Jar 0. 2 2:55 PM [facility] DERMATOPATHOLOGY LABORATORY Microscopic Description Specimen A. SKIN, left of midline vertex scalp: There are nests of squamous epithelial cells which arise from the epidermis and extend into the dermis. The nests have only focal central keratinization and rare horn carmen formation. Specimen B. SKIN, left vertex scalp: The epidermis shows parakeratosis, full thickness disorderly maturation of keratinocytes, mitoses at different levels, and dyskeratotic cells. Attached to the undersurface of the epidermis, there are small aggregates of basaloid cells with a high nuclear to cytoplasmic ratio and peripheral palisading. Specimen C. SKIN, posterior vertex scalp: The epidermis shows parakeratosis, full thickness disorderly maturation of keratinocytes, mitoses at different levels, and dyskeratotic cells. There is focal parakeratosis. The lower half of the epidermis shows disorderly maturation of keratinocytes with nuclear pleomorphism. 2 2:55 PM [facility] DERMATOPATHOLOGY LABORATORY Disclaimer An external and internal positive and negative controls are appropriate for the histochemical, immunohistochemical and immunofluorescence stain(s) in this case (if any), except where stated explicitly. The performance characteristics of the stain(s) cited in this report were developed and its performance characteristic determined by the Dermatopathology Laboratory at [facility], directed by Dr. Ronen Ye. These tests need not be, and therefore are not, approved by the [place] Food and Drug Administration. The tests are used for clinical purposes. Billing Codes Specimen Charges Stain Charges 65728 96086 39758 1 1 1 2 2:55 PM CDT DERMATOPATHOLOGY LABORATORY Embedded Images 2 2:55 PM CDT DERMATOPATHOLOGY LABORATORY Pathology/Cytology TISSUE SPECIMEN FROM SKIN / Unknown 09/29/2021 09/30/2021 11:47 AM CDT Miscellaneous samples (specimen) TISSUE SPECIMEN FROM SKIN / Unknown 09/29/2021 09/30/2021 11:47 AM CDT Miscellaneous samples (specimen) TISSUE SPECIMEN FROM SKIN / Unknown 09/29/2021 09/30/2021 11:47 AM CDT Tommy Young MD LAB - PATHOLOGY/CYTO LOGY ORDERABLES DERMATOPATHOLOGY LABORATORY [facility] - Department of Dermatology [facility] Medicine [address] [place] [address], [address] [phone] documented in this encounter Visit Diagnoses Not on filedocumented in this encounter
--- OUTSIDE RECORDS SUMMARY | 2024-07-19 10:20 | XMS_ITS | Encounter Summary ---
Author Organization [facility] Address [address] [place] [address] Care Team Providers Care Bonbon Cream Warmer Name Role Phone Unavailable Primary Care Provider Unavailabl e Encounter Details Date Type Department Care Team (Late st Contact Info) Description 06/21/2023 Lab Requisition [facility] - DermPath Lab [address] [place] [phone] Tommy Young MD [address] [place] [address] Social History Tobacco Use Types [...] Priority Date/Time Associated Diagnosis Comments DERMATOPATHOLOGY Routine 06/20/2023 3:33 AM SUPERVISOR SHIPPING ROOM documented in this encounter Results * DERMATOPATHOLOGY (06/20/2023 3:33 AM SUPERVISOR SHIPPING ROOM) Case Report Dermatopathology Report Case: [id number] Authorizing Provider: Tommy Young MD Collected: 06/20/2023 03:33 AM Ordering Location: [facility] DermPath Lab Received: 06/22/2023 07:03 AM Pathologist: Batsheva Matthews MD Specimens: A) - Skin, superior midline nasal bulb B) - Skin, right of midline superior nasal bulb 2:57 PM SUPERVISOR SHIPPING ROOM DERMATOPATHOLOGY LABORATORY Final Diagnosis Specimen A. 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 Rosacea 2:57 PM [facility] DERMATOPATHOLOGY LABORATORY Gross Description Specimen A: Received is one formalin filled container labeled with the patient's name and designated superior midline nasal bulb. The specimen consists of a shave biopsy measuring 4x4x1 mm. Jar 0. Specimen B: Received is one formalin filled container labeled with the patient's name and designated right of midline superior nasal bulb. The specimen consists of a shave biopsy measuring 4x4x1 mm. Jar 0. 2:57 PM [facility] DERMATOPATHOLOGY LABORATORY Microscopic Description Specimen A. SKIN, superior midline nasal bulb: There is focal parakeratosis. The lower half of the epidermis shows disorderly maturation of keratinocytes with nuclear pleomorphism. There is solar elastosis and vascular ectasia. Specimen B. SKIN, right of midline superior nasal bulb: Sections show a perifollicular lymphohistiocytic infiltrate. There is solar elastosis and vascular ectasia. COMMENT for A and B: These findings are consistent with a background of rosacea in this context. Clinicopathologic correlation is recommended. 2:57 PM [facility] DERMATOPATHOLOGY LABORATORY Disclaimer An external and internal [...] purposes. Billing Codes Specimen Charges Stain Charges 45169 13965 1 1 4 2:57 PM [facility] DERMATOPATHOLOGY LABORATORY Embedded Images 2:57 PM [facility] DERMATOPATHOLOGY LABORATORY Pathology/Cytology TISSUE SPECIMEN FROM SKIN / Unknown 06/20/2023 3:33 AM SUPERVISOR SHIPPING ROOM 06/22/2023 7:03 AM SUPERVISOR SHIPPING ROOM Miscellaneous samples (specimen) TISSUE SPECIMEN FROM SKIN / Unknown 06/20/2023 3:33 AM SUPERVISOR SHIPPING ROOM 06/22/2023 7:03 AM SUPERVISOR SHIPPING ROOM Tommy Young MD LAB - PATHOLOGY/CYTO LOGY ORDERABLES DERMATOPATHOLOGY LABORATORY [facility] - Department of Dermatology [facility] Specialized Medicine [address] [place] [address], [address] [phone] documented in this encounter Visit Diagnoses Not on filedocumented in this encounter
--- OUTSIDE RECORDS SUMMARY | 2024-07-19 10:20 | XMS_ITS | Encounter Summary ---
Author Organization [facility] Address [address] [place] [address] Care Team Providers Care Refining Equipment Operator Name Role Phone Unavailable Primary Care Provider Unavailabl e Encounter Details Date Type Department Care Team (Late st Contact Info) Description 03/06/2023 Lab Requisition [facility] - DermPath Lab [address] [place] [phone] Guerita Matthews MD [address] [place] [address] Social History Tobacco Use Types Packs/Day Years Used Date Smoking Tobacco: Never Assessed Sex and Gender Information Value Date Recorded Sex Assigned at Not on file Gender Identity Not on file Sexual Orientation Not on file documented as of this encounter Plan of Treatment Not on file documented as of this encounter Procedures Procedure Name Priority Date/Time Associated Diagnosis Comments DERMATOPATHOLOGY Routine 03/06/2023 2:33 PM CDT documented in this encounter Results * DERMATOPATHOLOGY (03/06/2023 2:33 PM CDT) Case Report Dermatopathology Report Case: [id number] Authorizing Provider: Guerita Matthews MD Collected: 03/06/2023 02:33 PM Ordering Location: [facility] DermPath Lab Received: 03/07/2023 02:20 PM Pathologist: Shani Spangler MD Specimen: Skin, left post base of neck 3 3:12 PM CDT DERMATOPATHOLOGY LABORATORY Final Diagnosis Specimen A. 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 The 12 to 6 o'clock margin is inked green. The 6 o'clock to 12 o'clock margin is inked black. The 12 o'clock tip is submitted in cassette 1. The 6 o'clock tip is submitted in cassette 2. The 3 o'clock tip is submitted in cassette 3. The remainder of the ellipse is serially sectioned and submitted in cassettes 4-8. Jar 0. 3 3:12 PM T DERMATOPATHOLOGY LABORATORY Microscopic Description Specimen A. SKIN, left post base of neck: There is a proliferation of melanocytes in the epidermis, with single cells predominating, distributed in an irregular pattern. This lesion is not present at the margin of the specimen. There are fibroblasts and collagen bundles oriented parallel to the skin surface with elongated blood vessels, some of which are oriented perpendicular to the skin surface. 3 3:12 PM T DERMATOPATHOLOGY LABORATORY Disclaimer An external and internal positive and negative controls are appropriate for the histochemical, immunohistochemical and immunofluorescence stain(s) in this case (if any), except where stated explicitly. The performance characteristics of the stain(s) cited in this report were developed and its performance characteristic determined by the Dermatopathology Laboratory at [facility], directed by Dr. Ronen Ye. These tests need not be, and therefore are not, approved by the [place] Food and Drug Administration. The tests are used for clinical purposes. Billing Codes Specimen Charges Stain Charges 90497 1 3 3:12 PM CDT DERMATOPATHOLOGY LABORATORY Embedded Images 3 3:12 PM CDT DERMATOPATHOLOGY LABORATORY Pathology/Cytolo gy TISSUE SPECIMEN FROM SKIN / Unknown 03/06/2023 2:33 PM CDT 03/07/2023 2:20 PM CDT Guerita Matthews MD LAB - PATHOLOGY/CYTO LOGY ORDERABLES DERMATOPATHOLOGY LABORATORY [facility] - Department of Dermatology [facility] Specialized Medicine [address] [place] [address], [address] [phone] documented in this encounter Visit Diagnoses Not on filedocumented in this encounter
--- OUTSIDE RECORDS SUMMARY | 2024-07-19 10:20 | XMS_ITS | Encounter Summary ---
Author Organization [facility] Address [address] [place] [address] Care Team Providers Care Leasing Director Name Role Phone Unavailable Primary Care Provider Unavailabl e Encounter Details Date Type Department Care Team (Late st Contact Info) Description 05/11/2022 Lab Requisition [facility] DermPath Lab [address] [place] [phone] Tommy Young MD [address] [place] [address] Social History Tobacco Use Types [...] Priority Date/Time Associated Diagnosis Comments DERMATOPATHOLOGY Routine 05/10/2022 12:0 0 AM MEAT INSPECTOR documented in this encounter Results * DERMATOPATHOLOGY (05/10/2022 12:00 AM MEAT INSPECTOR) Case Report Dermatopathology Report Case: [id number] Authorizing Provider: Tommy Young MD Collected: 05/10/2022 12:00 AM Ordering Location: [facility] DermPath Lab Received: 05/11/2022 12:55 PM Pathologist: Matilda Matthews MD Specimens: A) - Skin, frontal midline scalp B) - Skin, right parietal scalp C) - Skin, midline parietal scalp D) - Skin, left of midline parietal scalp E) - Skin, left parietal scalp 2:47 PM MEAT INSPECTOR DERMATOPATHOLOGY LABORATORY Final Diagnosis Specimen A. SKIN, frontal midline scalp: HYPERPLASTIC (HYPERTROPHIC) ACTINIC KERATOSIS, INFLAMED (L57.0) DERMAL FIBROSIS (L90.5) (see microscopic description) Specimen B. SKIN, right parietal scalp: HYPERPLASTIC (HYPERTROPHIC) ACTINIC KERATOSIS, INFLAMED (L57.0) EPIDERMAL NECROSIS SUGGESTIVE OF EXCORIATION (L98.499) (see microscopic description) Specimen C. SKIN, midline parietal scalp: HYPERPLASTIC (HYPERTROPHIC) ACTINIC KERATOSIS WITH FOCAL ACANTHOLYTIC FEATURES, INFLAMED (L57.0) EPIDERMAL NECROSIS SUGGESTIVE OF EXCORIATION (L98.499) (see microscopic description) Specimen D. 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 SKIN, left parietal scalp: SQUAMOUS CELL CARCINOMA IN SITU (CONNER'S DISEASE) (D04.4) DERMAL FIBROSIS (L90.5) (see microscopic description) 2:47 PM [facility] DERMATOPATHOLOGY LABORATORY Clinical History A-E: R/O SCC, CONNER'S 2:47 PM [facility] DERMATOPATHOLOGY LABORATORY Gross Description Specimen A: Received is one formalin filled container labeled with the patient's name and designated frontal midline scalp. The specimen consists of a shave biopsy measuring 52o33q7 mm. Jar 0. Specimen B: Received is one formalin filled container labeled with the patient's name and designated right parietal scalp. The specimen consists of a shave biopsy measuring 41m05f0 mm. Jar 0. Specimen C: Received is one formalin filled container labeled with the patient's name and designated midline parietal scalp. The specimen consists of a shave biopsy measuring 14p50t0 mm. Jar 0. Specimen D: Received is one formalin filled container labeled with the patient's name and designated left of midline parietal scalp. The specimen consists of a shave biopsy measuring 43b58s9 mm. Jar 0. Specimen E: Received is one formalin filled container labeled with the patient's name and designated left parietal scalp. The specimen consists of a shave biopsy measuring 8x7x1 mm. Jar 0. 2 2:47 PM [facility] DERMATOPATHOLOGY LABORATORY Microscopic Description Specimen A. SKIN, frontal midline scalp: There is hyperkeratosis alternating with parakeratosis. There is epidermal hyperplasia with disorderly maturation of keratinocytes with nuclear pleomorphism confined to the lower half of the epidermis. There is a lymphohistiocytic infiltrate within the dermis. There is focal dermal fibrosis. Specimen B. SKIN, right parietal scalp: There is hyperkeratosis alternating with parakeratosis. There is epidermal hyperplasia with disorderly maturation of keratinocytes with nuclear pleomorphism confined to the lower half of the epidermis. There is a lymphohistiocytic infiltrate within the dermis. The epidermis is focally necrotic and covered with a scale-crust. There is fibrin at the base. Specimen C. SKIN, midline parietal scalp: There is hyperkeratosis alternating with parakeratosis. There is epidermal hyperplasia with disorderly maturation of keratinocytes with nuclear pleomorphism confined to the lower half of the epidermis. Focally there is a suprabasilar cleft with acantholytic cells. There is a lymphohistiocytic infiltrate within the dermis. The epidermis is focally necrotic and covered with a scale-crust. There is fibrin at the base. Specimen D. SKIN, left of midline parietal scalp: The epidermis shows parakeratosis, full thickness disorderly maturation of keratinocytes, mitoses at different levels, and dyskeratotic cells. There is a lymphohistiocytic infiltrate within the dermis. Specimen E. SKIN, left parietal scalp: The epidermis shows parakeratosis, full thickness disorderly maturation of keratinocytes, mitoses at different levels, and dyskeratotic cells. There is focal dermal fibrosis. 2 2:47 PM [facility] DERMATOPATHOLOGY LABORATORY Disclaimer An external and internal positive and negative controls are appropriate for the histochemical, immunohistochemical and immunofluorescence stain(s) in this case (if any), except where stated explicitly. The performance characteristics of the stain(s) cited in this report were developed and its performance characteristic determined by the Dermatopathology Laboratory at [facility], directed by Dr. Ronen Ye. These tests need not be, and therefore are not, approved by the [place] Food and Drug Administration. The tests are used for clinical purposes. Billing Codes Specimen Charges Stain Charges 30784 13751 06020 35979 30045 1 1 1 1 1 2 2:47 PM [facility] DERMATOPATHOLOGY LABORATORY Embedded Images 2 2:47 PM [facility] DERMATOPATHOLOGY LABORATORY Pathology/Cytology TISSUE SPECIMEN FROM SKIN / Unknown 05/10/2022 05/11/2022 12:55 PM MEAT INSPECTOR Miscellaneous samples (specimen) TISSUE SPECIMEN FROM SKIN / Unknown 05/10/2022 05/11/2022 12:55 PM MEAT INSPECTOR Miscellaneous samples (specimen) TISSUE SPECIMEN FROM SKIN / Unknown 05/10/2022 05/11/2022 12:55 PM MEAT INSPECTOR Miscellaneous samples (specimen) TISSUE SPECIMEN FROM SKIN / Unknown 05/10/2022 05/11/2022 12:55 PM MEAT INSPECTOR Miscellaneous samples (specimen) TISSUE SPECIMEN FROM SKIN / Unknown 05/10/2022 05/11/2022 12:55 PM MEAT INSPECTOR Tommy Young MD LAB - PATHOLOGY/CYTO LOGY ORDERABLES DERMATOPATHOLOGY LABORATORY [facility] - Department of Dermatology [facility] Medicine [address] [place] [address] [phone] documented in this encounter Visit Diagnoses Not on filedocumented in this encounter
--- OUTSIDE RECORDS SUMMARY | 2024-07-19 10:20 | XMS_ITS | Referral Summary ---
Author Organization [facility] Address [address] [place] [address] Care Team Providers Care Palletizer Operator Name Role Phone Unavailable Primary Care Provider Unavailabl e Source Comments [facility],non-owned Affiliates and Associated Physician Practices is amultiple site organization consisting of ambulatory clinics and hospital sitesin [place], [place], [place] and [place]. This disclosure is being madepursuant to the Care Everywhere program and may not contain all information available regarding this patient. Last updated 18.[facility] Encounters Date Type Department Care Team Description 04/26/2024 Lab Requisition [facility] - DermPath Lab [address] [facility] [place] [address] Tommy Young MD from Last 3 Months Social History Tobacco Use Types Packs/Day Years Used Date Smoking Tobacco: Never Assessed Sex and Gender Information Value Date Recorded Sex Assigned at Not on file Gender Identity Not on file Sexual Orientation Not on file Plan of Treatment Not on file Procedures Procedure Name Priority Date/Time Associated Diagnosis Comments DERMATOPATHOLOGY Routine 04/24/2024 3:33 AM REFRACTORY TILE HELPER from Last 3 Months Results * DERMATOPATHOLOGY (04/24/2024 3:33 AM REFRACTORY TILE HELPER) Case Report Dermatopathology Report Case: [id number] Authorizing Provider: Tommy Young MD Collected: 04/24/2024 03:33 AM Ordering Location: [facility] Physician [facility] - Received: 04/26/2024 03:23 PM DermPath Lab Pathologist: Matilda Matthews MD Specimen: Skin, left lateral buttock 4 1:27 PM REFRACTORY TILE HELPER DERMATOPATHOLOGY LABORATORY Final Diagnosis Specimen A. 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 Check margins 1:27 PM [facility] DERMATOPATHOLOGY LABORATORY Gross Description Specimen A: Received is one formalin filled container labeled with the patients name and designated left lateral buttock. The specimen consists of a shave removal measuring 7x7x1 mm. Jar 0. 1:27 PM [facility] DERMATOPATHOLOGY LABORATORY Microscopic Description Specimen A. SKIN, left lateral buttock: There are nests of melanocytes at the dermal-epidermal junction and within the dermis. Some melanocytes are splayed between collagen bundles and are localized around adnexal structures. This lesion is present at the margin of the specimen. 1:27 PM [facility] DERMATOPATHOLOGY LABORATORY Disclaimer An external and internal positive and negative controls are appropriate for the histochemical, immunohistochemical and immunofluorescence stain(s) in this case (if any), except where stated explicitly. The performance characteristics of the stain(s) cited in this report were developed and its performance characteristic determined by the Dermatopathology Laboratory at [facility], directed by Dr. Ronen Ye. These tests need not be, and therefore are not, approved by the [place] Food and Drug Administration. The tests are used for clinical purposes. Billing Codes Specimen Charges Stain Charges 92002 1 1:27 PM [facility] DERMATOPATHOLOGY LABORATORY Embedded Images 1:27 PM [facility] DERMATOPATHOLOGY LABORATORY Pathology/Cytolo gy TISSUE SPECIMEN FROM SKIN / Unknown 04/24/2024 3:33 AM REFRACTORY TILE HELPER 04/26/2024 3:23 PM [facility] Tommy Young MD LAB - PATHOLOGY/CYTO LOGY ORDERABLES DERMATOPATHOLOGY LABORATORY [facility] - Department of Dermatology [address], [address] [phone] from Last 3 Months
--- OUTSIDE RECORDS SUMMARY | 2024-07-19 10:20 | XMS_ITS | Encounter Summary ---
Author Organization [facility] Address [address] [facility] [place] [address] Care Team Providers Care Mediator Name Role Phone Unavailable Primary Care Provider Unavailabl e Encounter Details Date Type Department Care Team (Late st Contact Info) Description 12/30/2020 Lab Requisition [facility] DermPath Lab [address] [facility] [place] [place] [id number] Tommy Young MD [address] [place] [address] Social History Tobacco Use Types [...] Priority Date/Time Associated Diagnosis Comments DERMATOPATHOLOGY Routine 12/29/2020 12:0 0 AM CDT documented in this encounter Results * DERMATOPATHOLOGY (12/29/2020 12:00 AM CDT) Case Report Dermatopathology Report Case: [id number] Authorizing Provider: Tommy Young MD Collected: 12/29/2020 12:00 AM Ordering Location: [facility] DermPath Lab Received: 12/30/2020 02:33 PM Pathologist: Matilda Matthews MD Specimens: A) - Skin, right vertex scalp B) - Skin, left frontal scalp at edge of bald area 4:07 PM CDT DERMATOPATHOLOGY LABORATORY Final Diagnosis Specimen A. 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 SKIN, left frontal scalp at edge of bald area: ACTINIC KERATOSIS (L57.0) 4:07 PM [facility] DERMATOPATHOLOGY LABORATORY Clinical History A-B: R/O SCC. 4:07 PM [facility] DERMATOPATHOLOGY LABORATORY Gross Description Specimen A: Received is one formalin filled container labeled with the patient's name and designated right vertex scalp. The specimen consists of a shave biopsy measuring 17c9s8bt. Jar 0. Specimen B: Received is one formalin filled container labeled with the patient's name and designated left frontal scalp at edge of bald area. The specimen consists of a shave biopsy measuring 7o7t1hs. Jar 0. 4:07 PM [facility] DERMATOPATHOLOGY LABORATORY Microscopic Description Specimen A. SKIN, right vertex scalp: The epidermis shows parakeratosis, full thickness disorderly maturation of keratinocytes, mitoses at different levels, and dyskeratotic cells. Focal acantholytic features are present. Specimen B. SKIN, left frontal scalp at edge of bald area: There is focal parakeratosis. The lower half of the epidermis shows disorderly maturation of keratinocytes with nuclear pleomorphism. 4:07 PM T DERMATOPATHOLOGY LABORATORY Disclaimer An external and internal positive and negative controls are appropriate for the histochemical, immunohistochemical and immunofluorescence stain(s) in this case (if any), except where stated explicitly. The performance characteristics of the stain(s) cited in this report were developed and its performance characteristic determined by the Dermatopathology Laboratory at [facility], directed by Dr. Ronen Ye. These tests need not be, and therefore are not, approved by the [place] Food and Drug Administration. The tests are used for clinical purposes. Billing Codes Specimen Charges Stain Charges 42860 63463 1 1 4:07 PM CDT DERMATOPATHOLOGY LABORATORY Embedded Images 4:07 PM T DERMATOPATHOLOGY LABORATORY Pathology/Cytology TISSUE SPECIMEN FROM SKIN / Unknown 12/29/2020 12/30/2020 2:33 PM CDT Miscellaneous samples (specimen) TISSUE SPECIMEN FROM SKIN / Unknown 12/29/2020 12/30/2020 2:33 PM CDT Tommy Young MD LAB - PATHOLOGY/CYTO LOGY ORDERABLES DERMATOPATHOLOGY LABORATORY [facility] - Department of Dermatology [facility] [address] [place] [address], [address] [phone] documented in this encounter Visit Diagnoses Not on filedocumented in this encounter
--- OUTSIDE RECORDS SUMMARY | 2024-07-19 10:20 | XMS_ITS | Encounter Summary ---
Author Organization [facility] Address [address] [place] [place] [address] Care Team Providers Care Iron Worker Apprentice Name Role Phone Unavailable Primary Care Provider Unavailabl e Encounter Details Date Type Department Care Team (Late st Contact Info) Description 04/26/2024 Lab Requisition [facility] - DermPath Lab [address] [place] [id number] Tommy Young MD [address] [place], [place] [id number] Social History Tobacco Use Types Packs/Day Years [...] Diagnosis Comments DERMATOPATHOLOGY Routine 04/24/2024 3:33 AM CHAIRLIFT OPERATOR documented in this encounter Results * DERMATOPATHOLOGY (04/24/2024 3:33 AM CHAIRLIFT OPERATOR) Case Report Dermatopathology Report Case: [id number] Authorizing Provider: Tommy Young MD Collected: 04/24/2024 03:33 AM Ordering Location: [facility] - Received: 04/26/2024 03:23 PM DermPath Lab Pathologist: Matilda Matthews MD Specimen: Skin, left lateral buttock 4 1:27 PM CHAIRLIFT OPERATOR DERMATOPATHOLOGY LABORATORY Final Diagnosis Specimen A. SKIN, left lateral buttock: COMPOUND NEVUS WITH CONGENITAL FEATURES (D22.5) PRESENT AT MARGIN 4 1:27 PM CHAIRLIFT OPERATOR DERMATOPATHOLOGY LABORATORY Clinical History R/O BCC, other. Check margins 1:27 PM [facility] DERMATOPATHOLOGY LABORATORY Gross Description Specimen A: Received is one formalin filled container labeled with the patients name and designated left lateral buttock. The specimen consists of a shave removal measuring 7x7x1 mm. Jar 0. 1:27 PM [facility] DERMATOPATHOLOGY LABORATORY Microscopic Description Specimen A. SKIN, left lateral buttock: There are nests of melanocytes at the dermal-epidermal junction and within the dermis. Some melanocytes are splayed between collagen bundles and are localized around adnexal structures. This lesion is present at the margin of the specimen. 1:27 PM [facility] DERMATOPATHOLOGY LABORATORY Disclaimer An external and internal positive and negative controls are appropriate for the histochemical, immunohistochemical and immunofluorescence stain(s) in this case (if any), except where stated explicitly. The performance characteristics of the stain(s) cited in this report were developed and its performance characteristic determined by the Dermatopathology Laboratory at [facility], directed by Dr. Ronen Ye. These tests need not be, and therefore are not, approved by the [place] Food and Drug Administration. The tests are used for clinical purposes. Billing Codes Specimen Charges Stain Charges 15314 1 1:27 PM [facility] DERMATOPATHOLOGY LABORATORY Embedded Images 1:27 PM [facility] DERMATOPATHOLOGY LABORATORY Pathology/Cytolo gy TISSUE SPECIMEN FROM SKIN / Unknown 04/24/2024 3:33 AM CHAIRLIFT OPERATOR 04/26/2024 3:23 PM CHAIRLIFT OPERATOR Tommy Young MD LAB - PATHOLOGY/CYTO LOGY ORDERABLES DERMATOPATHOLOGY LABORATORY [facility] - Department of Dermatology [address], [address] [phone] documented in this encounter Visit Diagnoses Not on filedocumented in this encounter
--- OUTSIDE RECORDS SUMMARY | 2024-07-19 10:20 | XMS_ITS | Continuity of Care Document ---
Author Organization [facility] Address [address] [place] [address] [place] [address] Phone Care Team Providers Care Lot Porter Name Role Phone Reynaldo Sherman DO Unavailable Unavailable Advance Directives Directive Yes / No Effective Date File Name No Information Encounters Encounter Description Practice Location Reason(s) For Visit Diagnoses Date Provider Providers Copied on Encounter [facility], [address], [place], [place], [id number], [place] tel:[phone] [facility] [place] No Information Whit [place]. [address] [facility], [place], [address], [place]. tel:[phone] Family History Family Member Type Diagnosis Age At Onset No Information Payers Payer name Insurance type Covered republican ID Authoriza tion(s) No Information Social History Type Description Quantity Date Captured Comments Sex Female Smoking Status No Information Chief Complaint And Reason For Visit No Information Reason For Referral Reason For Referral No Information History Of Present Illness Encounter Date Complaint History Of Prese nt Illness No Information Functional Status Date Functional Assessmen t No Information Instructions Date Instruction Additional Infor mation No Information Assessments Type Assessment Date No Information Patient Care Teams Name Effective Dates (start - stop) Status Members No Information
--- OUTSIDE RECORDS SUMMARY | 2024-07-19 10:20 | XMS_ITS | Encounter Summary ---
Author Organization [facility] Address [address] [facility] [place] [address] Care Team Providers Care Urology Physician Assistant Name Role Phone Unavailable Primary Care Provider Unavailabl e Encounter Details Date Type Department Care Team (Late st Contact Info) Description 01/03/2018 Lab Requisition [facility] DermPath Lab [address] [facility] [place] [address] Tommy Young MD [address] [place] [address] Social History Tobacco Use Types [...] Priority Date/Time Associated Diagnosis Comments DERMATOPATHOLOGY Routine 01/02/2018 12:0 0 AM CDT documented in this encounter Results * DERMATOPATHOLOGY (01/02/2018 12:00 AM CDT) Case Report Dermatopathology Report Case: [id number] Authorizing Provider: Tommy Young MD Collected: 01/02/2018 12:00 AM Pathologist: August Ye MD Received: 01/03/2018 11:57 AM Specimen: Skin, right mid helix 8 4:55 PM CDT DERMATOPATHOLOGY LABORATORY Final Diagnosis Specimen A. 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 4:55 PM CDT DERMATOPATHOLOGY LABORATORY Gross Description Specimen A: Received is one formalin filled container labeled with the patient's name and designated right mid helix. The specimen consists of a punch biopsy measuring 1s0j3yq, bisected. Jar 0. 4:55 PM CDT DERMATOPATHOLOGY LABORATORY Microscopic Description Specimen A. SKIN, right mid helix: There is hyperkeratosis alternating with parakeratosis. There is epidermal hyperplasia with disorderly maturation of keratinocytes with nuclear pleomorphism confined to the lower half of the epidermis. In addition, there is adjacent pidermal hyperplasia overlying dilated blood vessels and fibroplasia. 4:55 PM CDT DERMATOPATHOLOGY LABORATORY Disclaimer An external and internal positive and negative controls are appropriate for the histochemical, immunohistochemical and immunofluorescence stain(s) in this case (if any), except where stated explicitly. The performance characteristics of the stain(s) cited in this report were developed and its performance characteristic determined by the Dermatopathology Laboratory at [facility]. These tests need not be, and therefore are not, approved by the [place] Food and Drug Administration. The tests are used for clinical purposes. Billing Codes Specimen Charges Stain Charges 89486 1 4:55 PM CDT DERMATOPATHOLOGY LABORATORY Embedded Images 4:55 PM CDT DERMATOPATHOLOGY LABORATORY Pathology/Cytolog y TISSUE SPECIMEN FROM SKIN / Unknown 01/02/2018 01/03/2018 11:57 AM CDT Tommy Young MD LAB - PATHOLOGY/CYTO LOGY ORDERABLES DERMATOPATHOLOGY LABORATORY [facility] - Department of Dermatology [address] [place] [address], 5th [place] [address], [facility] [phone] documented in this encounter Visit Diagnoses Not on filedocumented in this encounter
--- OUTSIDE RECORDS SUMMARY | 2024-07-19 10:20 | XMS_ITS | Patient Health Summary ---
Author Organization [facility] Address [address] [place] [address] Care Team Providers Care Office Services Clerk Name Role Phone Unavailable Primary Care Provider Unavailabl e Note from [facility],non-owned Affiliates and Associated Physician Practices is amultiple site organization consisting of ambulatory clinics and hospital sitesin [place], [place], [place] and [place]. This disclosure is being madepursuant to the Care Everywhere program and may not contain all information available regarding this patient. Last updated 18.[facility] [employer] Social History Tobacco Use Types Packs/Day Years Used Date Smoking Tobacco: Never Assessed Sex and Gender Information Value Date Recorded Sex Assigned at Not on file Gender Identity Not on file Sexual Orientation Not on file Procedures * DERMATOPATHOLOGY(Performed 04/24/2024) * DERMATOPATHOLOGY(Performed 06/20/2023) * DERMATOPATHOLOGY(Performed 03/06/2023) * DERMATOPATHOLOGY(Performed 01/31/2023) * DERMATOPATHOLOGY(Performed 05/10/2022) * DERMATOPATHOLOGY(Performed 09/29/2021) * DERMATOPATHOLOGY(Performed 01/05/2021) * DERMATOPATHOLOGY(Performed 12/29/2020) * DERMATOPATHOLOGY(Performed 08/07/2018) * DERMATOPATHOLOGY(Performed 01/02/2018) * DERMATOPATHOLOGY(Performed 08/23/2016) * DERMATOPATHOLOGY(Performed 12/29/2015) * DERMATOPATHOLOGY(Performed 04/14/2015) * DERMATOPATHOLOGY(Performed 05/21/2014) Results * DERMATOPATHOLOGY (04/24/2024 3:33 AM SOFTWARE QUALITY ASSURANCE ENGINEER) Only the most recent of14 resultswithin the time period is included. Case Report Dermatopathology Report Case: [id number] Authorizing Provider: Tommy Young MD Collected: 04/24/2024 03:33 AM Ordering Location: [facility] - Received: 04/26/2024 03:23 PM DermPath Lab Pathologist: Matilda Matthews MD Specimen: Skin, left lateral buttock 1:27 PM [facility] Final Diagnosis Specimen A. SKIN, left lateral buttock: COMPOUND NEVUS WITH CONGENITAL FEATURES (D22.5) PRESENT AT MARGIN 4 1:27 PM SOFTWARE QUALITY ASSURANCE ENGINEER DERMATOPATHOLOGY LABORATORY Clinical History R/O BCC, other. Check margins 1:27 PM SOFTWARE QUALITY ASSURANCE ENGINEER DERMATOPATHOLOGY LABORATORY Gross Description Specimen A: Received is one formalin filled container labeled with the patients name and designated left lateral buttock. The specimen consists of a shave removal measuring 7x7x1 mm. Jar 0. 1:27 PM SOFTWARE QUALITY ASSURANCE ENGINEER DERMATOPATHOLOGY LABORATORY Microscopic Description Specimen A. SKIN, left lateral buttock: There are nests of melanocytes at the dermal-epidermal junction and within the dermis. Some melanocytes are splayed between collagen bundles and are localized around adnexal structures. This lesion is present at the margin of the specimen. 1:27 PM SOFTWARE QUALITY ASSURANCE ENGINEER DERMATOPATHOLOGY LABORATORY Disclaimer An external and internal positive and negative controls are appropriate for the histochemical, immunohistochemical and immunofluorescence stain(s) in this case (if any), except where stated explicitly. The performance characteristics of the stain(s) cited in this report were developed and its performance characteristic determined by the Dermatopathology Laboratory at [facility], directed by Dr. Ronen Ye. These tests need not be, and therefore are not, approved by the [place] Food and Drug Administration. The tests are used for clinical purposes. Billing Codes Specimen Charges Stain Charges 80076 1 1:27 PM SOFTWARE QUALITY ASSURANCE ENGINEER DERMATOPATHOLOGY LABORATORY Embedded Images 1:27 PM [facility] Pathology/Cytolo gy TISSUE SPECIMEN FROM SKIN / Unknown 04/24/2024 3:33 AM SOFTWARE QUALITY ASSURANCE ENGINEER 04/26/2024 3:23 PM SOFTWARE QUALITY ASSURANCE ENGINEER Tommy Young MD LAB - PATHOLOGY/CYTO LOGY ORDERABLES DERMATOPATHOLOGY LABORATORY [facility] - Department of Dermatology [facility] [address], [address]rd [place] [address], [facility] [phone]
--- OUTSIDE RECORDS SUMMARY | 2024-07-19 10:20 | XMS_ITS | Encounter Summary ---
Author Organization [facility] Address [address] [place] [address] Care Team Providers Care Rod And Tube Straightener Name Role Phone Unavailable Primary Care Provider Unavailabl e Encounter Details Date Type Department Care Team (Late st Contact Info) Description 02/01/2023 Lab Requisition [facility] - DermPath Lab [address] [place] [phone] Tommy Young MD [address] [place], [place] [id number] Social History Tobacco Use Types Packs/Day Years Used Date Smoking Tobacco: Never Assessed Sex and Gender Information Value Date Recorded Sex Assigned at Not on file Gender Identity Not on file Sexual Orientation Not on file documented as of this encounter Plan of Treatment Not on file documented as of this encounter Procedures Procedure Name Priority Date/Time Associated Diagnosis Comments DERMATOPATHOLOGY Routine 01/31/2023 12:0 0 AM CDT documented in this encounter Results * DERMATOPATHOLOGY (01/31/2023 12:00 AM CDT) Case Report Dermatopathology Report Case: [id number] Authorizing Provider: Tommy Young MD Collected: 01/31/2023 12:00 AM Ordering Location: [facility] DermPath Lab Received: 02/02/2023 06:48 AM Pathologist: Matilda Matthews MD Specimens: A) - Skin, med vertex scalp B) - Skin, post left vertex scalp C) - Skin, left post base of neck 12:52 PM CDT DERMATOPATHOLOGY LABORATORY Final Diagnosis Specimen A. 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 DERMATOPATHOLOGY LABORATORY Clinical History A-B: R/O SCC C: dysplastic nevus, SK 3 12:52 PM T DERMATOPATHOLOGY LABORATORY Gross Description Specimen A: Received is one formalin filled container labeled with the patient's name and designated med vertex scalp. The specimen consists of a shave biopsy measuring 71t17v3 and 5x3x1 mm. Jar 0. Specimen B: Received is one formalin filled container labeled with the patient's name and designated post left vertex scalp. The specimen consists of a shave biopsy measuring 10x9x3 mm. Jar 0. Specimen C: Received is one formalin filled container labeled with the patient's name and designated left post base of neck. The specimen consists of a shave biopsy measuring 10x7x1 and 6x5x1 mm. Jar 0. 3 12:52 PM T DERMATOPATHOLOGY LABORATORY Microscopic Description Specimen A. SKIN, med vertex scalp: The epidermis shows parakeratosis, full thickness disorderly maturation of keratinocytes, mitoses at different levels, and dyskeratotic cells. Specimen B. SKIN, post left vertex scalp: The epidermis shows parakeratosis, full thickness disorderly maturation of keratinocytes, mitoses at different levels, and dyskeratotic cells. Focal nests are present in the dermis. Specimen C. SKIN, left post base of neck: There is a proliferation of melanocytes distributed in an irregular pattern along the dermal-epidermal junction with single cells predominating. Extension down the follicular epithelium and focal areas of confluence are present. This melanocytic proliferation is highlighted on MART-1/Melan-A. This lesion is present at the peripheral and deep margin of the specimen. Somewhat separate, there are cytologically bland melanocytes within the dermis that mature with depth, also highlighted by MART-1/MelanA that do not show significant staining with HMB-45. In addition, there are rare MART-1/MelanA positive dendritic cells in the superficial dermis that are not appreciated on HMB-45 or routine sections. COMMENT: The dermal MART-1/Melan-A positive cells have been termed MART-1/Melan-A positive cells of undetermined significance and are thought to represent either non-specific staining with MART-1/Melan-A or benign, reactive dermal melanocytes. References: 1. Christoph GALEANO, Lita R, Tera J. Melan-A positive dermal cells in malignant melanoma in situ. Journal of Cutaneous Pathology 2015;42: 388-393. 2. Gopal A, Jana LAWRENCE, Sho SHEIKH. Melanocytes in long-standing sun-exposed skin: quantitative analysis using the MART-1 immunostain. Archives of Dermatology 2006;142(7):871-6. 3 12:52 PM CDT DERMATOPATHOLOGY LABORATORY Disclaimer An external [...] purposes. Billing Codes Specimen Charges Stain Charges 38911 95065 89763 1 1 1 66723 09391 1 1 3 12:52 PM CDT DERMATOPATHOLOGY LABORATORY Embedded Images 3 12:52 PM CDT DERMATOPATHOLOGY LABORATORY Pathology/Cytology TISSUE SPECIMEN FROM SKIN / Unknown 01/31/2023 02/02/2023 6:48 AM CDT Miscellaneous samples (specimen) TISSUE SPECIMEN FROM SKIN / Unknown 01/31/2023 02/02/2023 6:48 AM CDT Miscellaneous samples (specimen) TISSUE SPECIMEN FROM SKIN / Unknown 01/31/2023 02/02/2023 6:48 AM CDT Tommy Young MD LAB - PATHOLOGY/CYTO LOGY ORDERABLES DERMATOPATHOLOGY LABORATORY [facility] - Department of Dermatology [address] [place] [address], [facility] [phone] documented in this encounter Visit Diagnoses Not on filedocumented in this encounter
--- OUTSIDE RECORDS SUMMARY | 2024-07-19 10:20 | XMS_ITS | Clinical Summary ---
Author Organization [facility] Address [address] [place] [address] Care Team Providers Care Jackscrew Man Name Role Phone DeborahscottyJose merchant Garrett Primary Care Provider Allergies No known active allergies Medications losartan (COZAAR) 100 mg tablet 02/16/2018 Active timolol (TIMOPTIC) 0.5 % solution 03/14/2018 Active latanoprost (XALATAN) 0.005 % solution 01/15/2018 Active Cholecalciferol, Vitamin D3, 2,000 unit Capsule Take 2,000 Units by mouth daily. 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 Aromatase inhibitor use 03/22/2018 History of external beam radiation therapy 03/22 Social History Tobacco Use Types Packs/Day Years Used Date Smoking Tobacco: Never Smokeless Tobacco: Never Alcohol Use Standard Drinks/Week Comments No 0 (1 standard drink = 0.6 oz pur e alcohol) Comments No Sex and Gender Information Value Date Recorded Sex Assigned at Not on file Legal Sex Female 3:33 PM CDT Gender Identity Not on file Sexual Orientation Not on file Last Filed Vital Signs Vital Sign Reading Time Taken Comments Blood Pressure 183/103 03/28/2019 9:40 AM CDT Pulse 56 03/28/2019 9:40 AM CDT Temperature 36.6 C (97.8 F) 03/28/2019 9:40 AM CDT Respiratory Rate - - Oxygen Saturation 98% 03/28/2019 9:40 AM CDT Inhaled Oxygen Concentration - - Weight 56.2 kg (123 lb 14.4 oz) 03/28/2019 9:40 AM CDT Height 165.1 cm (5' 5 ) 03/28/2019 9:40 AM CDT Body Mass Index 20.62 03/28/2019 9:40 AM CDT Plan of Treatment Health Maintenance Due Date Last Done Comments DTAP/TDAP/TD VACCINES (1 - Tdap) 10/02/1954 PNEUMOCOCCAL VACCINE 65+ YEARS (1 of 1 - PCV) 10/02/18 86 ZOSTER VACCINE (1 of 2) 10/02/1985 OSTEOPOROSIS SCREENING 10/02/2000 RSV VACCINE (60+ or ) (1 - 1-dose 75+ series) 10/02/2010 INFLUENZA VACCINE (#1) 2024 Insurance [facility] Care Teams Jackscrew Man Relationship Specialty Start Date End Date Jose Mark DO [address] [address] PCP - General Internal Medicine 03/22/18
--- OUTSIDE RECORDS SUMMARY | 2024-07-19 10:20 | XMS_ITS | Encounter Summary ---
Author Organization [facility] Address [address] [place] [address] Care Team Providers Care Leadership Program Associate Name Role Phone Unavailable Primary Care Provider Unavailabl e Encounter Details Date Type Department Care Team (Late st Contact Info) Description 08/08/2018 Lab Requisition [facility] DermPath Lab [address] [facility], [facility] [place] [address] Tommy Young MD [address] [place] [address] Social History Tobacco Use Types [...] Priority Date/Time Associated Diagnosis Comments DERMATOPATHOLOGY Routine 08/07/2018 12:0 0 AM PIPE WRAPPING MACHINE OPERATOR documented in this encounter Results * DERMATOPATHOLOGY (08/07/2018 12:00 AM PIPE WRAPPING MACHINE OPERATOR) Case Report Dermatopathology Report Case: [id number] Authorizing Provider: Tommy Young MD Collected: 08/07/2018 12:00 AM Pathologist: Elham Tejada MD Received: 08/08/2018 12:31 PM Specimens: A) - Skin, left of midline post vertex at hairline B) - Skin, midline crown parietal vertex C) - Skin, right parietal scalp @ hairline 9 1:52 PM PIPE WRAPPING MACHINE OPERATOR DERMATOPATHOLOGY LABORATORY Final Diagnosis Specimen A. SKIN, left of midline post vertex at hairline: SQUAMOUS CELL CARCINOMA, WELL DIFFERENTIATED (C44.42) Specimen B. SKIN, midline crown parietal vertex: SQUAMOUS CELL CARCINOMA IN SITU; PRESENT AT THE BASE OF THE SPECIMEN (D04.4) (see microscopic description and comment) Specimen C. SKIN, right parietal scalp @ hairline: SQUAMOUS CELL CARCINOMA IN SITU (D04.4) BENIGN VERRUCOUS KERATOSIS (L82.1) 1:52 PM [facility] DERMATOPATHOLOGY LABORATORY Clinical History A: R/O SCC. B: R/O SCCIS. C: R/O SCC vs SCCIS. 1:52 PM [facility] DERMATOPATHOLOGY LABORATORY Gross Description Specimen A: Received is one formalin filled container labeled with the patient's name and designated left of midline post vertex at hairline. The specimen consists of a shave biopsy (2 pieces) measuring 08x46z5xu, trisected, & 19s1c4cm. Jar 0+. Specimen B: Received is one formalin filled container labeled with the patient's name and designated midline crown parietal vertex. The specimen consists of a shave biopsy (2 pieces) measuring 08i95k6oo & 11x7x3 mm. Jar 0+. Specimen C: Received is one formalin filled container labeled with the patient's name and designated right parietal scalp @ hairline. The specimen consists of a shave biopsy measuring 7i9x1nx. Jar 0+. 1:52 PM [facility] DERMATOPATHOLOGY LABORATORY Microscopic Description Specimen A. SKIN, left of midline post vertex at hairline: Arising in the epidermis and extending into the dermis there are irregularly shaped aggregates of keratinocytes showing evidence of premature cornification. Specimen B. SKIN, midline crown parietal vertex: The epidermis shows parakeratosis, full thickness disorderly maturation of keratinocytes, mitoses at different levels, and dyskeratotic cells. The lesion extends to the base of the biopsy. COMMENT: An invasive squamous cell carcinoma cannot be ruled out. Specimen C. SKIN, right parietal scalp @ hairline: The epidermis shows parakeratosis, full thickness disorderly maturation of keratinocytes, mitoses at different levels, and dyskeratotic cells. The adjacent skin show hyperkeratosis, papillomatosis, hypergranulosis, and acanthosis. These histological findings can be seen in a verruca vulgaris or a seborrheic keratosis. 1:52 PM [facility] DERMATOPATHOLOGY LABORATORY Disclaimer An external and internal positive and negative controls are appropriate for the histochemical, immunohistochemical and immunofluorescence stain(s) in this case (if any), except where stated explicitly. The performance characteristics of the stain(s) cited in this report were developed and its performance characteristic determined by the Dermatopathology Laboratory at [facility], directed by Dr. Ronen Ye. These tests need not be, and therefore are not, approved by the [place] Food and Drug Administration. The tests are used for clinical purposes. Billing Codes Specimen Charges Stain Charges 24728 34926 46831 1 1 1 9 1:52 PM PIPE WRAPPING MACHINE OPERATOR DERMATOPATHOLOGY LABORATORY Embedded Images 9 1:52 PM PIPE WRAPPING MACHINE OPERATOR DERMATOPATHOLOGY LABORATORY Pathology/Cytology TISSUE SPECIMEN FROM SKIN / Unknown 08/07/2018 08/08/2018 12:31 PM PIPE WRAPPING MACHINE OPERATOR Miscellaneous samples (specimen) TISSUE SPECIMEN FROM SKIN / Unknown 08/07/2018 08/08/2018 12:31 PM PIPE WRAPPING MACHINE OPERATOR Miscellaneous samples (specimen) TISSUE SPECIMEN FROM SKIN / Unknown 08/07/2018 08/08/2018 12:31 PM PIPE WRAPPING MACHINE OPERATOR Tommy Young MD LAB - PATHOLOGY/CYTO LOGY ORDERABLES DERMATOPATHOLOGY LABORATORY [facility] - Department of Dermatology [address] [place] [address], [address] [place] [address], [facility] [phone] documented in this encounter Visit Diagnoses Not on filedocumented in this encounter
--- OUTSIDE RECORDS SUMMARY | 2024-07-19 10:20 | XMS_ITS | Clinical Summary ---
Author Organization [facility] Address [address] [facility] [place] [address] Care Team Providers Care Driver Merchandiser Name Role Phone Unavailable Primary Care Provider Unavailabl e Source Comments [facility],non-owned Affiliates and Associated Physician Practices is amultiple site organization consisting of ambulatory clinics and hospital sitesin [place], [place], [place] and [place]. This disclosure is being madepursuant to the Care Everywhere program and may not contain all information available regarding this patient. Last updated 18.[facility] Encounters Date Type Department Care Team Description 04/26/2024 Lab Requisition [facility] - DermPath Lab [address] [place] [address] Tommy Young MD from Last 3 Months Social History Tobacco Use Types Packs/Day Years Used Date Smoking Tobacco: Never Assessed Sex and Gender Information Value Date Recorded Sex Assigned at Not on file Gender Identity Not on file Sexual Orientation Not on file Plan of Treatment Health Maintenance Due Date Last Done Comments BONE DENSITY TESTING 1935 MEDICARE AWV 12 MONTHS 1935 DTAP/TDAP/TD VACCINES (1 - Tdap) 10/02/1954 PNEUMOCOCCAL VACCINE 50+ (1 of 1 - PCV) 10/02/1985 ZOSTER VACCINE (1 of 2) 10/02/1985 Respiratory Syncytial Virus (RSV) Vaccine Pt: or over 60 yrs (1 - 1-dose 75+ series) 10/02/2010 COVID-19 VACCINE ( - 2023-2 5 season) 2024 INFLUENZA VACCINE (#1) 2024 DEPRESSION SCREENING 06/12/2024 HEPATITIS B VACCINE Aged Out No longe r eligible based on patient's age to complete this topic HIB VACCINE Aged Out No longer eligi ble based on patient's age to complete this topic HPV VACCINE Aged Out No longer eligi ble based on patient's age to complete this topic MENINGOCOCCAL (Group B) VACCINE Aged Out No longer eligible based on patient's age to complete this topic MENINGOCOCCAL VACCINE Aged Out No ivan patricia eligible based on patient's age to complete this topic Procedures Procedure Name Priority Date/Time Associated Diagnosis Comments DERMATOPATHOLOGY Routine 04/24/2024 3:33 AM SUPERVISOR TELEPHONE ANSWERING SERVICE from Last 3 Months Results * DERMATOPATHOLOGY (04/24/2024 3:33 AM SUPERVISOR TELEPHONE ANSWERING SERVICE) Case Report Dermatopathology Report Case: [id number] Authorizing Provider: Tommy Young MD Collected: 04/24/2024 03:33 AM Ordering Location: [facility] - Received: 04/26/2024 03:23 PM DermPath Lab Pathologist: Matilda Matthews MD Specimen: Skin, left lateral buttock 1:27 PM [facility] DERMATOPATHOLOGY LABORATORY Final Diagnosis Specimen A. 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 Check margins 1:27 PM [facility] DERMATOPATHOLOGY LABORATORY Gross Description Specimen A: Received is one formalin filled container labeled with the patients name and designated left lateral buttock. The specimen consists of a shave removal measuring 7x7x1 mm. Jar 0. 1:27 PM [facility] DERMATOPATHOLOGY LABORATORY Microscopic Description Specimen A. SKIN, left lateral buttock: There are nests of melanocytes at the dermal-epidermal junction and within the dermis. Some melanocytes are splayed between collagen bundles and are localized around adnexal structures. This lesion is present at the margin of the specimen. 1:27 PM [facility] DERMATOPATHOLOGY LABORATORY Disclaimer An external and internal positive and negative controls are appropriate for the histochemical, immunohistochemical and immunofluorescence stain(s) in this case (if any), except where stated explicitly. The performance characteristics of the stain(s) cited in this report were developed and its performance characteristic determined by the Dermatopathology Laboratory at [facility], directed by Dr. Ronen Ye. These tests need not be, and therefore are not, approved by the [place] Food and Drug Administration. The tests are used for clinical purposes. Billing Codes Specimen Charges Stain Charges 36578 1 4 1:27 PM SUPERVISOR TELEPHONE ANSWERING SERVICE DERMATOPATHOLOGY LABORATORY Embedded Images 4 1:27 PM SUPERVISOR TELEPHONE ANSWERING SERVICE DERMATOPATHOLOGY LABORATORY Pathology/Cytolo gy TISSUE SPECIMEN FROM SKIN / Unknown 04/24/2024 3:33 AM SUPERVISOR TELEPHONE ANSWERING SERVICE 04/26/2024 3:23 PM SUPERVISOR TELEPHONE ANSWERING SERVICE Tommy Young MD LAB - PATHOLOGY/CYTO LOGY ORDERABLES DERMATOPATHOLOGY LABORATORY [facility] - Department of Dermatology [address] [phone] from Last 3 Months
== END 2024-07-19 09:35 | disposition home or self-care (01) ==
PROVIDERS: PCP Internal Medicine; Visit Provider Nurse Practitioner
DX: I65.23 Occlusion and stenosis of bilateral carotid arteries (principal); I63.81 Other cerebral infarction due to occlusion or stenosis of small artery; R55 Syncope and collapse; Z86.73 Personal history of transient ischemic attack (TIA), and cerebral infarction without residual deficits
CPT/HCPCS: 70553; 93880; A9577

== ENCOUNTER 2024-09-02 09:27 | Outpatient (CLI) | payer MEDICARE, SELFPAY ==
--- OUTSIDE RECORDS SUMMARY | 2024-09-02 10:29 | XMS_ITS | Encounter Summary ---
Author Organization [facility] Address [address] [facility] [place] [address] Care Team Providers Care Online Advertising Director Name Role Phone Unavailable Primary Care Provider Unavailabl e Encounter Details Date Type Department Care Team (Late st Contact Info) Description 12/30/2020 Lab Requisition [facility] [address] [facility] [place] [id number] Tommy Young MD [address] [place] [address] Social History Tobacco Use Types [...] AM CDT) Case Report Dermatopathology Report Case: [id number] Authorizing Provider: Tommy Young MD Collected: 12/29/2020 12:00 AM Ordering Location: [facility] Received: 12/30/2020 02:33 PM Pathologist: [...] bald area: ACTINIC KERATOSIS (L57.0) 4:07 PM [facility] DERMATOPATHOLOGY LABORATORY Clinical History A-B: R/O SCC. 4:07 PM [facility] DERMATOPATHOLOGY LABORATORY Gross Description Specimen A: Received is one formalin filled container labeled with the patient's name and designated right vertex scalp. The specimen consists of a shave biopsy measuring 39k2f3rp. Jar 0. Specimen B: Received is one formalin filled container labeled with the patient's name and designated left frontal scalp at edge of bald area. The specimen consists of a shave biopsy measuring 3o3j8tj. Jar 0. 4:07 PM [facility] DERMATOPATHOLOGY LABORATORY Microscopic Description [...] determined by the Dermatopathology Laboratory at [facility], directed by Dr. Ronen Ye. These tests need not be, and therefore are not, approved by the [place] Food and Drug Administration. The tests are used for clinical purposes. Billing Codes Specimen Charges Stain Charges 63409 65047 1 1 4:07 PM CDT DERMATOPATHOLOGY LABORATORY Embedded Images 4:07 PM T DERMATOPATHOLOGY LABORATORY Pathology/Cytology TISSUE SPECIMEN FROM SKIN / Unknown 12/29/2020 12/30/2020 2:33 PM CDT Miscellaneous samples (specimen) TISSUE SPECIMEN FROM SKIN / Unknown 12/29/2020 12/30/2020 2:33 PM CDT Tommy Young MD LAB - PATHOLOGY/CYTO LOGY ORDERABLES DERMATOPATHOLOGY LABORATORY [facility] - Department of Dermatology [facility] Medicine [address] [place] [address], [address] Floor [address] [phone] documented in this encounter Visit Diagnoses Not on filedocumented in this encounter
--- OUTSIDE RECORDS SUMMARY | 2024-09-02 10:29 | XMS_ITS | Clinical Summary ---
Author Organization [facility] Address [address] [place] [address] Care Team Providers Care Oil Well Services Field Supervisor Name Role Phone Unavailable Primary Care Provider Unavailabl e Source Comments [facility],non-owned Affiliates and Associated Physician Practices is amultiple site organization consisting of ambulatory clinics and hospital sitesin [place], [place], [place] and [place]. This disclosure is being madepursuant to the Care Everywhere program and may not contain all information available regarding this patient. Last updated 18.[facility] ION Signature Social History Tobacco Use Types Packs/Day Years [...] to complete this topic MENINGOCOCCAL (Group B) VACC INE SHARED DECISION-MAKING Aged Out No longer eligibl e based on patient's age to complete this topic MENINGOCOCCAL GROUPS A/C/Y/W VACCINE Aged Out No longer eligible b ased on patient's age to complete this topic
--- OUTSIDE RECORDS SUMMARY | 2024-09-02 10:29 | XMS_ITS | Encounter Summary ---
Author Organization [facility] Address [address] [facility] [place] [address] Care Team Providers Care Ornamenter Hand Name Role Phone Unavailable Primary Care Provider Unavailabl e Encounter Details Date Type Department Care Team (Late st Contact Info) Description 09/30/2021 Lab Requisition [facility] DermPath Lab [address] [facility] [place] [id number] Tommy Young MD [address] [place] [address] Social History Tobacco Use Types [...] AM CDT) Case Report Dermatopathology Report Case: [id number] Authorizing Provider: Tommy Young MD Collected: 09/29/2021 12:00 AM Ordering Location: [facility] DermPath Lab Received: 09/30/2021 11:47 AM Pathologist: August eY MD Specimens: A) - Skin, left of [...] (D04.4) ACTINIC KERATOSIS (L57.0) 2 2:55 PM [facility] DERMATOPATHOLOGY LABORATORY Clinical History A-C: R/O SCC vs. Blank's 2 2:55 PM T DERMATOPATHOLOGY LABORATORY Gross Description Specimen A: Received is one formalin filled container labeled with the patient's name and designated left of midline vertex scalp. The specimen consists of a shave biopsy measuring 65i37x6oj and it is bisected. Jar 0. Specimen B: Received is one formalin filled container labeled with the patient's name and designated left vertex scalp. The specimen consists of a shave biopsy measuring 48t8b0iz. Jar 0. Specimen C: Received is one formalin filled container labeled with the patient's name and designated posterior vertex scalp. The specimen consists of a shave biopsy measuring 8l78y4di. Jar 0. 2 2:55 PM [facility] DERMATOPATHOLOGY LABORATORY Microscopic Description Specimen A. SKIN, [...] keratinocytes with nuclear pleomorphism. 2 2:55 PM [facility] DERMATOPATHOLOGY LABORATORY Disclaimer An external and internal positive and negative controls are appropriate for the histochemical, immunohistochemical and immunofluorescence stain(s) in this case (if any), except where stated explicitly. The performance characteristics of the stain(s) cited in this report were developed and its performance characteristic determined by the Dermatopathology Laboratory at [facility], directed by Dr. Ronen Ye. These tests need not be, and therefore are not, approved by the [place] Food and Drug Administration. The tests are used for clinical purposes. Billing Codes Specimen Charges Stain Charges 11846 98161 12494 1 1 1 2 2:55 PM CDT [...] LAB - PATHOLOGY/CYTO LOGY ORDERABLES DERMATOPATHOLOGY LABORATORY [facility] - Department of Dermatology [facility] Medicine [address] [place] [address], [address] Floor [address] [phone] documented in this encounter Visit Diagnoses Not on filedocumented in this encounter
--- OUTSIDE RECORDS SUMMARY | 2024-09-02 10:29 | XMS_ITS | Encounter Summary ---
Author Organization [facility] Address [address] [facility] [place] [address] Care Team Providers Care Masonry Contractor Name Role Phone Unavailable Primary Care Provider Unavailabl e Encounter Details Date Type Department Care Team (Late st Contact Info) Description 05/11/2022 Lab Requisition [facility] DermPath Lab [address] [facility] [id number] Tommy Young MD [address] [place] [address] Social History Tobacco Use Types [...] Comments DERMATOPATHOLOGY Routine 05/10/2022 12:0 0 AM SPECIAL EDUCATION DIRECTOR documented in this encounter Results * DERMATOPATHOLOGY (05/10/2022 12:00 AM SPECIAL EDUCATION DIRECTOR) Case Report Dermatopathology Report Case: [id number] Authorizing Provider: Tommy Young MD Collected: 05/10/2022 12:00 AM Ordering Location: [facility] DermPath Lab Received: 05/11/2022 12:55 PM Pathologist: Matilda Matthews MD Specimens: A) - Skin, frontal midline scalp B) - Skin, right parietal scalp C) - Skin, midline parietal scalp D) - Skin, left of midline parietal scalp E) - Skin, left parietal scalp 2:47 PM SPECIAL EDUCATION DIRECTOR DERMATOPATHOLOGY LABORATORY Final Diagnosis Specimen A. SKIN, [...] FIBROSIS (L90.5) (see microscopic description) 2:47 PM [facility] DERMATOPATHOLOGY LABORATORY Clinical History A-E: R/O SCC, CONNER'S 2:47 PM [facility] DERMATOPATHOLOGY LABORATORY Gross Description Specimen A: Received is one formalin filled container labeled with the patient's name and designated frontal midline scalp. The specimen consists of a shave biopsy measuring 12h63p3 mm. Jar 0. Specimen B: Received is one formalin filled container labeled with the patient's name and designated right parietal scalp. The specimen consists of a shave biopsy measuring 38r45w9 mm. Jar 0. Specimen C: Received is one formalin filled container labeled with the patient's name and designated midline parietal scalp. The specimen consists of a shave biopsy measuring 91z61e2 mm. Jar 0. Specimen D: Received is one formalin filled container labeled with the patient's name and designated left of midline parietal scalp. The specimen consists of a shave biopsy measuring 41i24a1 mm. Jar 0. Specimen E: Received is one formalin filled container labeled with the patient's name and designated left parietal scalp. The specimen consists of a shave biopsy measuring 8x7x1 mm. Jar 0. 2 2:47 PM [facility] DERMATOPATHOLOGY LABORATORY Microscopic Description Specimen [...] is focal dermal fibrosis. 2 2:47 PM [facility] DERMATOPATHOLOGY LABORATORY Disclaimer An external and internal positive and negative controls are appropriate for the histochemical, immunohistochemical and immunofluorescence stain(s) in this case (if any), except where stated explicitly. The performance characteristics of the stain(s) cited in this report were developed and its performance characteristic determined by the Dermatopathology Laboratory at [facility], directed by Dr. Ronen Ye. These tests need not be, and therefore are not, approved by the [place] Food and Drug Administration. The tests are used for clinical purposes. Billing Codes Specimen Charges Stain Charges 00750 46948 81089 54961 17807 1 1 1 1 1 2 2:47 PM [facility] DERMATOPATHOLOGY LABORATORY Embedded Images 2 2:47 PM [facility] DERMATOPATHOLOGY LABORATORY Pathology/Cytology TISSUE SPECIMEN FROM SKIN / Unknown 05/10/2022 05/11/2022 12:55 PM SPECIAL EDUCATION DIRECTOR Miscellaneous samples (specimen) TISSUE SPECIMEN FROM SKIN / Unknown 05/10/2022 05/11/2022 12:55 PM SPECIAL EDUCATION DIRECTOR Miscellaneous samples (specimen) TISSUE SPECIMEN FROM SKIN / Unknown 05/10/2022 05/11/2022 12:55 PM SPECIAL EDUCATION DIRECTOR Miscellaneous samples (specimen) TISSUE SPECIMEN FROM SKIN / Unknown 05/10/2022 05/11/2022 12:55 PM SPECIAL EDUCATION DIRECTOR Miscellaneous samples (specimen) TISSUE SPECIMEN FROM SKIN / Unknown 05/10/2022 05/11/2022 12:55 PM SPECIAL EDUCATION DIRECTOR Tommy Young MD LAB - PATHOLOGY/CYTO LOGY ORDERABLES DERMATOPATHOLOGY LABORATORY [facility] - Department of Dermatology [facility] Medicine [address] [place] [address] [phone] documented in this encounter Visit Diagnoses Not on filedocumented in this encounter
--- OUTSIDE RECORDS SUMMARY | 2024-09-02 10:29 | XMS_ITS | Encounter Summary ---
Author Organization [facility] Address [address] [facility] [place] [address] Care Team Providers Care Entry Specialists Name Role Phone Unavailable Primary Care Provider Unavailabl e Encounter Details Date Type Department Care Team (Late st Contact Info) Description 02/01/2023 Lab Requisition [facility] - DermPath Lab [address] [place] [phone] Tommy Young MD [address] [place], [place] [id number] Social History Tobacco Use Types Packs/Day Years [...] AM CDT) Case Report Dermatopathology Report Case: [id number] Authorizing Provider: Tommy Young MD Collected: 01/31/2023 12:00 AM Ordering Location: [facility] DermPath Lab Received: 02/02/2023 06:48 AM Pathologist: [...] microscopic description and comment) 3 12:52 PM [facility] DERMATOPATHOLOGY LABORATORY Clinical History A-B: R/O SCC C: dysplastic nevus, SK 3 12:52 PM T DERMATOPATHOLOGY LABORATORY Gross Description Specimen A: Received is one formalin filled container labeled with the patient's name and designated med vertex scalp. The specimen consists of a shave biopsy measuring 20w13s0 and 5x3x1 mm. Jar 0. Specimen B: [...] determined by the Dermatopathology Laboratory at [facility], directed by Dr. Ronen Ye. These tests need not be, and therefore are not, approved by the [place] Food and Drug Administration. The tests are used for clinical purposes. Billing Codes Specimen Charges Stain Charges 25150 86782 98160 1 1 1 17258 48930 1 1 3 12:52 PM CDT DERMATOPATHOLOGY [...] PATHOLOGY/CYTO LOGY ORDERABLES DERMATOPATHOLOGY LABORATORY [facility] - Department of Dermatology [address] [place] [address], [facility] [phone] documented in this encounter Visit Diagnoses Not on filedocumented in this encounter
--- OUTSIDE RECORDS SUMMARY | 2024-09-02 10:29 | XMS_ITS | Encounter Summary ---
Author Organization [facility] Address [address] [facility] [place] [address] Care Team Providers Care Public Policy Associate Name Role Phone Unavailable Primary Care Provider Unavailabl e Encounter Details Date Type Department Care Team (Late st Contact Info) Description 08/08/2018 Lab Requisition [facility] DermPath Lab [address] [facility] [place] [address] Tommy Young MD [address] [place] [address] Social History Tobacco Use Types [...] Comments DERMATOPATHOLOGY Routine 08/07/2018 12:0 0 AM LAB SCIENTIST documented in this encounter Results * DERMATOPATHOLOGY (08/07/2018 12:00 AM LAB SCIENTIST) Case Report Dermatopathology Report Case: [id number] Authorizing Provider: Tommy Young MD Collected: 08/07/2018 12:00 AM Pathologist: Elham Tejada MD Received: 08/08/2018 12:31 PM Specimens: A) - Skin, left of midline post vertex at hairline B) - Skin, midline crown parietal vertex C) - Skin, right parietal scalp @ hairline 9 1:52 PM LAB SCIENTIST DERMATOPATHOLOGY LABORATORY Final Diagnosis Specimen A. SKIN, [...] BENIGN VERRUCOUS KERATOSIS (L82.1) 1:52 PM [facility] DERMATOPATHOLOGY LABORATORY Clinical History A: R/O SCC. B: R/O SCCIS. C: R/O SCC vs SCCIS. 1:52 PM [facility] DERMATOPATHOLOGY LABORATORY Gross Description Specimen A: Received is one formalin filled container labeled with the patient's name and designated left of midline post vertex at hairline. The specimen consists of a shave biopsy (2 pieces) measuring 26y04v7dr, trisected, & 43q6b6gs. Jar 0+. Specimen B: Received is one formalin filled container labeled with the patient's name and designated midline crown parietal vertex. The specimen consists of a shave biopsy (2 pieces) measuring 50l59y4jj & 11x7x3 mm. Jar 0+. Specimen C: Received is one formalin filled container labeled with the patient's name and designated right parietal scalp @ hairline. The specimen consists of a shave biopsy measuring 9u5p1wx. Jar 0+. 1:52 PM [facility] DERMATOPATHOLOGY LABORATORY Microscopic Description Specimen A. [...] or a seborrheic keratosis. 1:52 PM [facility] DERMATOPATHOLOGY LABORATORY Disclaimer An external and [...] purposes. Billing Codes Specimen Charges Stain Charges 14253 70708 48510 1 1 1 9 1:52 PM LAB SCIENTIST DERMATOPATHOLOGY LABORATORY Embedded Images 9 1:52 PM LAB SCIENTIST DERMATOPATHOLOGY LABORATORY Pathology/Cytology TISSUE SPECIMEN FROM SKIN / Unknown 08/07/2018 08/08/2018 12:31 PM LAB SCIENTIST Miscellaneous samples (specimen) TISSUE SPECIMEN FROM SKIN / Unknown 08/07/2018 08/08/2018 12:31 PM LAB SCIENTIST Miscellaneous samples (specimen) TISSUE SPECIMEN FROM SKIN / Unknown 08/07/2018 08/08/2018 12:31 PM LAB SCIENTIST Tommy Young MD LAB - PATHOLOGY/CYTO LOGY ORDERABLES DERMATOPATHOLOGY LABORATORY [facility] - Department of Dermatology [address] [place] [address], [address] [place] [address], [facility] [phone] documented in this encounter Visit Diagnoses Not on filedocumented in this encounter
--- OUTSIDE RECORDS SUMMARY | 2024-09-02 10:29 | XMS_ITS | Encounter Summary ---
Author Organization [facility] Address [address] [facility] [place] [address] Care Team Providers Care Health Education Director Name Role Phone Unavailable Primary Care Provider Unavailabl e Encounter Details Date Type Department Care Team (Late st Contact Info) Description 01/07/2021 Lab Requisition [facility] DermPath Lab [address] [facility] [place] [phone] Tommy Young MD [address] [place] [address] Social History Tobacco Use Types [...] AM CDT) Case Report Dermatopathology Report Case: [id number] Authorizing Provider: Tommy Young MD Collected: 01/05/2021 12:00 AM Ordering Location: [facility] DermPath Lab Received: 01/07/2021 08:45 AM Pathologist: Jaimee Tapia MD Specimen: Skin, right vertex 4:44 PM CDT DERMATOPATHOLOGY LABORATORY Final Diagnosis Specimen A. 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 See [id number] 4:44 PM CDT DERMATOPATHOLOGY LABORATORY Gross Description Specimen A: Received is one formalin filled container labeled with the patient's name and designated right vertex. The specimen consists of a curettage and desiccation biopsy measuring 61l78r3 mm. Jar 0. 4:44 PM CDT DERMATOPATHOLOGY [...] characteristic determined by the Dermatopathology Laboratory at [facility], directed by Dr. Ronen Ye. These tests need not be, and therefore are not, approved by the [place] Food and Drug Administration. The tests are used for clinical purposes. Billing Codes Specimen Charges Stain Charges 98734 1 4:44 PM CDT DERMATOPATHOLOGY LABORATORY Embedded Images 4:44 PM CDT DERMATOPATHOLOGY LABORATORY Pathology/Cytolog y TISSUE SPECIMEN FROM SKIN / Unknown 01/05/2021 01/07/2021 8:45 AM CDT Tommy Young MD LAB - PATHOLOGY/CYTO LOGY ORDERABLES DERMATOPATHOLOGY LABORATORY [facility] - Department of Dermatology [address], [address] Floor [address] [phone] documented in this encounter Visit Diagnoses Not on filedocumented in this encounter
--- OUTSIDE RECORDS SUMMARY | 2024-09-02 10:30 | XMS_ITS | Encounter Summary ---
Author Organization [facility] Address [address] [place] [address] Care Team Providers Care Scientific Programmer Analyst Name Role Phone Unavailable Primary Care Provider Unavailabl e Encounter Details Date Type Department Care Team (Late st Contact Info) Description 04/26/2024 Lab Requisition [facility] - DermPath Lab [address] [place] [phone] Tommy Young MD [address] [place], [place] [id number] Social History Tobacco Use Types Packs/Day Years [...] Diagnosis Comments DERMATOPATHOLOGY Routine 04/24/2024 3:33 AM SHEET ROCK TAPER HELPER documented in this encounter Results * DERMATOPATHOLOGY (04/24/2024 3:33 AM SHEET ROCK TAPER HELPER) Case Report Dermatopathology Report Case: [id number] Authorizing Provider: Tommy Young MD Collected: 04/24/2024 03:33 AM Ordering Location: [facility] - Received: 04/26/2024 03:23 PM DermPath Lab Pathologist: Matilda Matthews MD Specimen: Skin, left lateral buttock 4 1:27 PM SHEET ROCK TAPER HELPER DERMATOPATHOLOGY LABORATORY Final Diagnosis Specimen A. SKIN, left lateral buttock: COMPOUND NEVUS WITH CONGENITAL FEATURES (D22.5) PRESENT AT MARGIN 4 1:27 PM SHEET ROCK TAPER HELPER DERMATOPATHOLOGY LABORATORY Clinical History R/O BCC, other. Check margins 1:27 PM [facility] DERMATOPATHOLOGY LABORATORY Gross Description Specimen A: Received is one formalin filled container labeled with the patients name and designated left lateral buttock. The specimen consists of a shave removal measuring 7x7x1 mm. Jar 0. 1:27 PM [facility] DERMATOPATHOLOGY LABORATORY Microscopic Description Specimen A. SKIN, left lateral buttock: There are nests of melanocytes at the dermal-epidermal junction and within the dermis. Some melanocytes are splayed between collagen bundles and are localized around adnexal structures. This lesion is present at the margin of the specimen. 1:27 PM [facility] DERMATOPATHOLOGY LABORATORY Disclaimer An external and internal positive and negative controls are appropriate for the histochemical, immunohistochemical and immunofluorescence stain(s) in this case (if any), except where stated explicitly. The performance characteristics of the stain(s) cited in this report were developed and its performance characteristic determined by the Dermatopathology Laboratory at [facility], directed by Dr. Ronen Ye. These tests need not be, and therefore are not, approved by the [place] Food and Drug Administration. The tests are used for clinical purposes. Billing Codes Specimen Charges Stain Charges 53156 1 1:27 PM [facility] DERMATOPATHOLOGY LABORATORY Embedded Images 1:27 PM [facility] DERMATOPATHOLOGY LABORATORY Pathology/Cytolo gy TISSUE SPECIMEN FROM SKIN / Unknown 04/24/2024 3:33 AM SHEET ROCK TAPER HELPER 04/26/2024 3:23 PM SHEET ROCK TAPER HELPER Tommy Young MD LAB - PATHOLOGY/CYTO LOGY ORDERABLES DERMATOPATHOLOGY LABORATORY [facility] - Department of Dermatology [address], [address] [phone] documented in this encounter Visit Diagnoses Not on filedocumented in this encounter
--- OUTSIDE RECORDS SUMMARY | 2024-09-02 10:30 | XMS_ITS | Encounter Summary ---
Author Organization [facility] Address [address] [facility] [place] [address] Care Team Providers Care Emblem Fuser Tender Name Role Phone Unavailable Primary Care Provider Unavailabl e Encounter Details Date Type Department Care Team (Late st Contact Info) Description 03/06/[address] [facility] - DermPath Lab [address] [place] [phone] Guerita Matthews MD [address] [place] [address] Social History Tobacco Use Types Packs/Day Years [...] PM CDT) Case Report Dermatopathology Report Case: [id number] Authorizing Provider: Guerita Matthews MD Collected: 03/06/2023 02:33 PM Ordering Location: [facility] DermPath Lab Received: 03/07/2023 02:20 PM Pathologist: [...] neck.The specimen consists of an ellipse measuring 25f41i9 mm and is oriented with the suture/notch [...] characteristic determined by the Dermatopathology Laboratory at [facility], directed by Dr. Ronen Ye. These tests need not be, and therefore are not, approved by the [place] Food and Drug Administration. The tests are used for clinical purposes. Billing Codes Specimen Charges Stain Charges 73658 1 3 3:12 PM CDT DERMATOPATHOLOGY LABORATORY Embedded Images 3 3:12 PM CDT DERMATOPATHOLOGY LABORATORY Pathology/Cytolo gy TISSUE SPECIMEN FROM SKIN / Unknown 03/06/2023 2:33 PM CDT 03/07/2023 2:20 PM CDT Guerita Matthews MD LAB - PATHOLOGY/CYTO LOGY ORDERABLES DERMATOPATHOLOGY LABORATORY [facility] - Department of Dermatology [facility] [address] [place] [address], [address] [phone] documented in this encounter Visit Diagnoses Not on filedocumented in this encounter
--- OUTSIDE RECORDS SUMMARY | 2024-09-02 10:30 | XMS_ITS | Encounter Summary ---
Author Organization [facility] Address [address] [facility] [place] [address] Care Team Providers Care Stemhole Borer Name Role Phone Unavailable Primary Care Provider Unavailabl e Encounter Details Date Type Department Care Team (Late st Contact Info) Description 01/03/2018 Lab Requisition [facility] DermPath Lab [address] [facility] [place] [address] Tommy Young MD [address] [place] [address] Social History Tobacco Use Types [...] AM CDT) Case Report Dermatopathology Report Case: [id number] Authorizing Provider: Tommy Young MD Collected: 01/02/2018 [...] specimen consists of a punch biopsy measuring 9w6k8ai, bisected. Jar 0. 4:55 PM CDT DERMATOPATHOLOGY [...] by the Dermatopathology Laboratory at [facility]. These tests need not be, and therefore are not, approved by the [place] Food and Drug Administration. The tests are used for clinical purposes. Billing Codes Specimen Charges Stain Charges 65304 1 4:55 PM CDT DERMATOPATHOLOGY LABORATORY Embedded Images 4:55 PM CDT DERMATOPATHOLOGY LABORATORY Pathology/Cytolog y TISSUE SPECIMEN FROM SKIN / Unknown 01/02/2018 01/03/2018 11:57 AM CDT Tommy Young MD LAB - PATHOLOGY/CYTO LOGY ORDERABLES DERMATOPATHOLOGY LABORATORY [facility] - Department of Dermatology [address] [place] [address], 5th [place] [address], [facility] [phone] documented in this encounter Visit Diagnoses Not on filedocumented in this encounter
--- OUTSIDE RECORDS SUMMARY | 2024-09-02 10:30 | XMS_ITS | Clinical Summary ---
Author Organization [facility] Address [address] [place] [address] Care Team Providers Care Vamp Liner Name Role Phone DeborahscottyJose merchant Garrett Primary [...] (1 - Tdap) 10/02/1954 PNEUMOCOCCAL VACCINE 50+ YEARS (1 of 1 - PCV) 10/02/18 86 ZOSTER VACCINE (1 of 2) 10/02/1985 OSTEOPOROSIS SCREENING 10/02/2000 RSV VACCINE (60+ or ) (1 - 1-dose 75+ series) 10/02/2010 INFLUENZA VACCINE (#1) 2024 Insurance [facility] Care Teams Vamp Liner Relationship Specialty Start Date End Date Jose Mark DO [address] [address] PCP - General Internal Medicine 03/22/18
--- OUTSIDE RECORDS SUMMARY | 2024-09-02 10:30 | XMS_ITS | Encounter Summary ---
Author Organization [facility] Address [address] [facility] [place] [address] Care Team Providers Care Senior Business Development Analyst Name Role Phone Unavailable Primary Care Provider Unavailabl e Encounter Details Date Type Department Care Team (Late st Contact Info) Description 06/21/2023 Lab Requisition [facility] - DermPath Lab [address] [place] [phone] Tommy Young MD [address] [place], [place] [id number] Social History Tobacco Use Types Packs/Day Years [...] Diagnosis Comments DERMATOPATHOLOGY Routine 06/20/2023 3:33 AM BUSINESS CONTINUITY STRATEGY DIRECTOR documented in this encounter Results * DERMATOPATHOLOGY (06/20/2023 3:33 AM BUSINESS CONTINUITY STRATEGY DIRECTOR) Case Report Dermatopathology Report Case: [id number] Authorizing Provider: Tommy Young MD Collected: 06/20/2023 03:33 AM Ordering Location: [facility] DermPath Lab Received: 06/22/2023 07:03 AM Pathologist: Batsheva Matthews MD Specimens: A) - Skin, superior midline nasal bulb B) - Skin, right of midline superior nasal bulb 2:57 PM BUSINESS CONTINUITY STRATEGY DIRECTOR DERMATOPATHOLOGY LABORATORY Final Diagnosis Specimen A. 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 Rosacea 2:57 PM [facility] DERMATOPATHOLOGY LABORATORY Gross Description Specimen [...] measuring 4x4x1 mm. Jar 0. 2:57 PM [facility] DERMATOPATHOLOGY LABORATORY Microscopic Description Specimen [...] context. Clinicopathologic correlation is recommended. 2:57 PM [facility] DERMATOPATHOLOGY LABORATORY Disclaimer An external and internal positive and negative controls are appropriate for the histochemical, immunohistochemical and immunofluorescence stain(s) in this case (if any), except where stated explicitly. The performance characteristics of the stain(s) cited in this report were developed and its performance characteristic determined by the Dermatopathology Laboratory at [facility], directed by Dr. Ronen Ye. These tests need not be, and therefore are not, approved by the [place] Food and Drug Administration. The tests are used for clinical purposes. Billing Codes Specimen Charges Stain Charges 84244 73359 1 1 4 2:57 PM [facility] DERMATOPATHOLOGY LABORATORY Embedded Images 2:57 PM [facility] DERMATOPATHOLOGY LABORATORY Pathology/Cytology TISSUE SPECIMEN FROM SKIN / Unknown 06/20/2023 3:33 AM BUSINESS CONTINUITY STRATEGY DIRECTOR 06/22/2023 7:03 AM BUSINESS CONTINUITY STRATEGY DIRECTOR Miscellaneous samples (specimen) TISSUE SPECIMEN FROM SKIN / Unknown 06/20/2023 3:33 AM BUSINESS CONTINUITY STRATEGY DIRECTOR 06/22/2023 7:03 AM BUSINESS CONTINUITY STRATEGY DIRECTOR Tommy Young MD LAB - PATHOLOGY/CYTO LOGY ORDERABLES DERMATOPATHOLOGY LABORATORY [facility] - Department of Dermatology [facility] Specialized Medicine [address] [place] [address], [address] [phone] documented in this encounter Visit Diagnoses Not on filedocumented in this encounter
[2024-09-02 15:40] LABS: Anion Gap 7 mmol/L (4-12); Blood Urea Nitrogen 27 mg/dL (7-17); Calcium 9.7 mg/dL (8.4-10.2); Carbon Dioxide 33 mmol/L (22-30); Chloride 101 mmol/L (98-107); Estimated Glomerular Filt Rate 55; Glucose 96 mg/dL (65-110); Potassium 4.3 mmol/L (3.4-5.0); Sodium 141 mmol/L (137-145)
== END 2024-09-02 09:28 | disposition home or self-care (01) ==
PROVIDERS: PCP Internal Medicine; Visit Provider Nurse Practitioner
DX: I10 Essential (primary) hypertension (principal)
CPT/HCPCS: 36415; 80048

== ENCOUNTER 2025-03-13 09:32 | Outpatient (CLI) | payer MEDICARE, SELFPAY ==
--- OUTSIDE RECORDS SUMMARY | 2025-03-13 10:02 | XMS_ITS | Encounter Summary ---
Author Organization [facility] Address [address] [facility] [place] [address] Care Team Providers Care Wardrobe Custodian Name Role Phone Unavailable Primary Care Provider Unavailabl e Encounter Details Date Type Department Care Team (Late st Contact Info) Description 12/30/2020 Lab Requisition [facility] DermPath Lab [address] [facility] [place] [phone] Tommy Young MD [address] [place] [address] Social History Tobacco Use Types Packs/Day Years Used Date Smoking Tobacco: Never Assessed Comments Unknown Sex and Gender Information Value Date Recorded Sex Assigned at Not on file Legal Sex Female 5:42 PM PROGRAM DEVELOPER Gender Identity Not on file Sexual Orientation Not on file documented as of this encounter Plan of Treatment Not on file documented as of this encounter Procedures Procedure Name Priority Date/Time Associated Diagnosis Comments DERMATOPATHOLOGY Routine 12/29/2020 12:0 0 AM CDT documented in this encounter Results * DERMATOPATHOLOGY (12/29/2020 12:00 AM CDT) Case Report Dermatopathology Report Case: [id number] Authorizing Provider: Tommy Young MD Collected: 12/29/2020 12:00 AM Ordering Location: [facility] DermPath Lab Received: 12/30/2020 02:33 PM Pathologist: [...] bald area: ACTINIC KERATOSIS (L57.0) 4:07 PM T DERMATOPATHOLOGY LABORATORY at 1606 CDT Clinical History A-B: R/O SCC. 4:07 PM CDT DERMATOPATHOLOGY LABORATORY Gross Description Specimen A: Received is one formalin filled container labeled with the patient's name and designated right vertex scalp. The specimen consists of a shave biopsy measuring 09u2w0kl. Jar 0. Specimen B: Received is one formalin filled container labeled with the patient's name and designated left frontal scalp at edge of bald area. The specimen consists of a shave biopsy measuring 5d4r7ov. Jar 0. 4:07 PM CDT DERMATOPATHOLOGY LABORATORY Microscopic Description Specimen [...] of keratinocytes with nuclear pleomorphism. 4:07 PM CDT DERMATOPATHOLOGY LABORATORY Disclaimer An external and internal positive and negative controls are appropriate for the histochemical, immunohistochemical and immunofluorescence stain(s) in this case (if any), except where stated explicitly. The performance characteristics of the stain(s) cited in this report were developed and its performance characteristic determined by the Dermatopathology Laboratory at [facility], directed by Dr. Ronen Ye. These tests need not be, and therefore are not, approved by the [place] Food and Drug Administration. The tests are used for clinical purposes. Billing Codes Specimen Charges Stain Charges 68266 80548 1 1 4:07 PM CDT DERMATOPATHOLOGY LABORATORY Embedded Images 4:07 PM CDT DERMATOPATHOLOGY LABORATORY Pathology/Cytology TISSUE SPECIMEN FROM SKIN / Unknown 12/29/2020 12/30/2020 2:33 PM CDT Miscellaneous samples (specimen) TISSUE SPECIMEN FROM SKIN / Unknown 12/29/2020 12/30/2020 2:33 PM CDT us Tommy Young MD LAB - PATHOLOGY/CYTOLOGY ORD ERABLES Final Result DERMATOPATHOLOGY LABORATORY [facility] - Department of Dermatology [facility] Medicine [address] [place] [address], [address] [phone] documented in this encounter Visit Diagnoses Not on filedocumented in this encounter
--- OUTSIDE RECORDS SUMMARY | 2025-03-13 10:02 | XMS_ITS | Encounter Summary ---
Author Organization [facility] Address [address] [facility] [place] [address] Care Team Providers Care Education Supervisor Name Role Phone Unavailable Primary Care Provider Unavailabl e Encounter Details Date Type Department Care Team (Late st Contact Info) Description 01/07/2021 Lab Requisition [facility] DermPath Lab [address] [facility] [facility] [place] [id number] Tommy Young MD [address] [place] [address] Social History Tobacco Use Types Packs/Day Years Used Date Smoking Tobacco: Never Assessed Comments Unknown Sex and Gender Information Value Date Recorded Sex Assigned at Not on file Legal Sex Female 5:42 PM WHEEL ADJUSTER Gender Identity Not on file Sexual Orientation Not on file documented as of this encounter Plan of Treatment Not on file documented as of this encounter Procedures Procedure Name Priority Date/Time Associated Diagnosis Comments DERMATOPATHOLOGY Routine 01/05/2021 12:0 0 AM CDT documented in this encounter Results * DERMATOPATHOLOGY (01/05/2021 12:00 AM CDT) Case Report Dermatopathology Report Case: [id number] Authorizing Provider: Tommy Young MD Collected: 01/05/2021 12:00 AM Ordering Location: [facility] DermPath Lab Received: 01/07/2021 08:45 AM Pathologist: Jaimee Tapia MD Specimen: Skin, right vertex 4:44 PM CDT DERMATOPATHOLOGY LABORATORY Final Diagnosis Specimen A. SKIN, right vertex: ULCER WITH SUPERFICIAL DERMAL NECROSIS (L98.499) (see microscopic description and comment) 4:44 PM CDT DERMATOPATHOLOGY LABORATORY at 1644 CDT Clinical History Biopsy proven Blank's disease. See [id number] 4:44 PM CDT DERMATOPATHOLOGY LABORATORY Gross Description Specimen A: Received is one formalin filled container labeled with the patient's name and designated right vertex. The specimen consists of a curettage and desiccation biopsy measuring 35k59k4 mm. Jar 0. 4:44 PM CDT DERMATOPATHOLOGY [...] characteristic determined by the Dermatopathology Laboratory at [facility], directed by Dr. Ronen Ye. These tests need not be, and therefore are not, approved by the [place] Food and Drug Administration. The tests are used for clinical purposes. Billing Codes Specimen Charges Stain Charges 73925 1 1 4:44 PM CDT DERMATOPATHOLOGY LABORATORY Embedded Images 4:44 PM CDT DERMATOPATHOLOGY LABORATORY Pathology/Cytolog y TISSUE SPECIMEN FROM SKIN / Unknown 01/05/2021 01/07/2021 8:45 AM CDT us Tommy Young MD LAB - PATHOLOGY/CYTOLOGY ORD ERABLES Final Result DERMATOPATHOLOGY LABORATORY [facility] - Department of Dermatology [address], [address] [place] [address], [facility] [phone] documented in this encounter Visit Diagnoses Not on filedocumented in this encounter
--- OUTSIDE RECORDS SUMMARY | 2025-03-13 10:02 | XMS_ITS | Encounter Summary ---
Author Organization [facility] Address [address] [facility] [place] [address] Care Team Providers Care Air Purifier Servicer Name Role Phone Unavailable Primary Care Provider Unavailabl e Encounter Details Date Type Department Care Team (Late st Contact Info) Description 09/30/2021 Lab Requisition [facility] DermPath Lab [address] [place] [phone] Tommy Young MD [address] [place] [address] Social History Tobacco Use Types Packs/Day Years Used Date Smoking Tobacco: Never Assessed Comments Unknown Sex and Gender Information Value Date Recorded Sex Assigned at Not on file Legal Sex Female 5:42 PM ROSE GRADER Gender Identity Not on file Sexual Orientation Not on file documented as of this encounter Plan of Treatment Not on file documented as of this encounter Procedures Procedure Name Priority Date/Time Associated Diagnosis Comments DERMATOPATHOLOGY Routine 09/29/2021 12:0 0 AM CDT documented in this encounter Results * DERMATOPATHOLOGY (09/29/2021 12:00 AM CDT) Case Report Dermatopathology Report Case: [id number] Authorizing Provider: Tommy Young MD Collected: 09/29/2021 12:00 AM Ordering Location: [facility] DermPath Lab Received: 09/30/2021 11:47 AM Pathologist: August Ye MD Specimens: A) - Skin, left of midline vertex scalp B) - Skin, left vertex scalp C) - Skin, posterior vertex scalp 2:55 PM CDT DERMATOPATHOLOGY LABORATORY Final Diagnosis Specimen A. 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 Blank's 2 2:55 PM CDT DERMATOPATHOLOGY LABORATORY Gross Description Specimen A: Received is one formalin filled container labeled with the patient's name and designated left of midline vertex scalp. The specimen consists of a shave biopsy measuring 90z00e7so and it is bisected. Jar 0. Specimen B: Received is one formalin filled container labeled with the patient's name and designated left vertex scalp. The specimen consists of a shave biopsy measuring 85n5x7or. Jar 0. Specimen C: Received is one formalin filled container labeled with the patient's name and designated posterior vertex scalp. The specimen consists of a shave biopsy measuring 0o78g4fy. Jar 0. 2 2:55 PM CDT DERMATOPATHOLOGY LABORATORY Microscopic Description Specimen [...] keratinocytes with nuclear pleomorphism. 2 2:55 PM CDT DERMATOPATHOLOGY LABORATORY Disclaimer An external and internal positive and negative controls are appropriate for the histochemical, immunohistochemical and immunofluorescence stain(s) in this case (if any), except where stated explicitly. The performance characteristics of the stain(s) cited in this report were developed and its performance characteristic determined by the Dermatopathology Laboratory at [facility], directed by Dr. Ronen Ye. These tests need not be, and therefore are not, approved by the [place] Food and Drug Administration. The tests are used for clinical purposes. Billing Codes Specimen Charges Stain Charges 34597 37037 46363 1 1 1 2 2:55 PM CDT DERMATOPATHOLOGY LABORATORY Embedded Images 2 2:55 PM CDT DERMATOPATHOLOGY LABORATORY Pathology/Cytology TISSUE SPECIMEN FROM SKIN / Unknown 09/29/2021 09/30/2021 11:47 AM CDT Miscellaneous samples (specimen) TISSUE SPECIMEN FROM SKIN / Unknown 09/29/2021 09/30/2021 11:47 AM CDT Miscellaneous samples (specimen) TISSUE SPECIMEN FROM SKIN / Unknown 09/29/2021 09/30/2021 11:47 AM CDT Tommy Young MD LAB - PATHOLOGY/CYTOLOGY ORD ERABLES Final Result DERMATOPATHOLOGY LABORATORY [facility] - Department of Dermatology [facility] Medicine [address] [place] [address], [address] Floor [address] [phone] documented in this encounter Visit Diagnoses Not on filedocumented in this encounter
--- OUTSIDE RECORDS SUMMARY | 2025-03-13 10:02 | XMS_ITS | Encounter Summary ---
Author Organization [facility] Address [address] [facility] [place] [address] Care Team Providers Care Puncher And Fastener Name Role Phone Unavailable Primary Care Provider Unavailabl e Encounter Details Date Type Department Care Team (Late st Contact Info) Description 02/01/2023 Lab Requisition [facility] - DermPath Lab [address] [place] [phone] Tommy Young MD [address] [place] [address] Social History Tobacco Use Types Packs/Day Years Used Date Smoking Tobacco: Never Assessed Comments Unknown Sex and Gender Information Value Date Recorded Sex Assigned at Not on file 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 Gender Identity Not on file Sexual Orientation Not on file documented as of this encounter Plan of Treatment Not on file documented as of this encounter Procedures Procedure Name Priority Date/Time Associated Diagnosis Comments DERMATOPATHOLOGY Routine 01/31/2023 12:0 0 AM CDT documented in this encounter Results * DERMATOPATHOLOGY (01/31/2023 12:00 AM CDT) Case Report Dermatopathology Report Case: [id number] Authorizing Provider: oTmmy Young MD Collected: 01/31/2023 12:00 AM Ordering [...] microscopic description and comment) 3 12:52 PM T DERMATOPATHOLOGY LABORATORY at 1252 CDT Clinical History A-B: R/O SCC C: dysplastic nevus, SK 3 12:52 PM CDT DERMATOPATHOLOGY LABORATORY Gross Description Specimen A: Received is one formalin filled container labeled with the patient's name and designated med vertex scalp. The specimen consists of a shave biopsy measuring 90r02z2 and 5x3x1 mm. Jar 0. Specimen B: [...] 6x5x1 mm. Jar 0. 3 12:52 PM CDT DERMATOPATHOLOGY LABORATORY Microscopic Description Specimen [...] by the Dermatopathology Laboratory at [facility], directed by Dr. Ronen Ye. These tests need not be, and therefore are not, approved by the [place] Food and Drug Administration. The tests are used for clinical purposes. Billing Codes Specimen Charges Stain Charges 71836 62216 59055 1 1 1 79547 34375 1 1 3 12:52 PM CDT DERMATOPATHOLOGY [...] PATHOLOGY/CYTOLOGY ORD ERABLES Final Result DERMATOPATHOLOGY LABORATORY [facility] - Department of Dermatology [facility] Special[facility] Medicine [facility] [facility], 3rd Floor [address] [phone] documented in this encounter Visit Diagnoses Not on filedocumented in this encounter
--- OUTSIDE RECORDS SUMMARY | 2025-03-13 10:02 | XMS_ITS | Clinical Summary ---
Author Organization [facility] Address [address] [place] [address] Care Team Providers Care Compressor Operator Name Role Phone Unavailable Primary Care Provider Unavailabl e Source Comments [facility],non-owned Affiliates and Associated Physician Practices is amultiple site organization consisting of ambulatory clinics and hospital sitesin [place], [place], [place] and [place]. This disclosure is being madepursuant to the Care Everywhere program and may not contain all information available regarding this patient. 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
--- OUTSIDE RECORDS SUMMARY | 2025-03-13 10:02 | XMS_ITS | Encounter Summary ---
Author Organization [facility] Address [address] [facility] [place] [address] Care Team Providers Care Quality Internship Name Role Phone Unavailable Primary Care Provider Unavailabl e Encounter Details Date Type Department Care Team (Late st Contact Info) Description 01/03/2018 Lab Requisition 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 Gender Identity Not on file Sexual Orientation Not on file documented as of this encounter Plan of Treatment Not on file documented as of this encounter Procedures Procedure Name Priority Date/Time Associated Diagnosis Comments DERMATOPATHOLOGY Routine 01/02/2018 12:0 0 AM CDT documented in this encounter Results * DERMATOPATHOLOGY (01/02/2018 12:00 AM CDT) Case Report Dermatopathology Report Case: [id number] Authorizing Provider: Tommy Young MD Collected: 01/02/2018 12:00 AM Pathologist: August Ye MD Received: 01/03/2018 11:57 AM Specimen: Skin, right mid helix 4:55 PM CDT DERMATOPATHOLOGY LABORATORY Final Diagnosis Specimen A. 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 4:55 PM CDT DERMATOPATHOLOGY LABORATORY Gross Description Specimen A: Received is one formalin filled container labeled with the patient's name and designated right mid helix. The specimen consists of a punch biopsy measuring 1g1m9ow, bisected. Jar 0. 4:55 PM CDT DERMATOPATHOLOGY [...] purposes. Billing Codes Specimen Charges Stain Charges 93489 1 8 4:55 PM CDT DERMATOPATHOLOGY LABORATORY Embedded Images 4:55 PM CDT DERMATOPATHOLOGY LABORATORY Pathology/Cytolog y TISSUE SPECIMEN FROM SKIN / Unknown 01/02/2018 01/03/2018 11:57 AM CDT Tommy Young MD LAB - PATHOLOGY/CYTOLOGY ORD ERABLES Final Result DERMATOPATHOLOGY LABORATORY [facility] - Department of Dermatology [facility] [facility], [address]th [place] [address], [facility] [phone] documented in this encounter Visit Diagnoses Not on filedocumented in this encounter
--- OUTSIDE RECORDS SUMMARY | 2025-03-13 10:02 | XMS_ITS | Encounter Summary ---
Author Organization [facility] Address [address] [facility] [place] [address] Care Team Providers Care Film Laboratory Technician Name Role Phone Unavailable Primary Care Provider Unavailabl e Encounter Details Date Type Department Care Team (Late st Contact Info) Description 08/08/2018 Lab Requisition [facility] DermPath Lab [address] [facility], [facility] [place] [address] Tommy Young MD [address] [place] [address] Social History Tobacco Use Types Packs/Day Years Used Date Smoking Tobacco: Never Assessed Comments Unknown Sex and Gender Information Value Date Recorded Sex Assigned at Not on file Legal Sex Female 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 Gender Identity Not on file Sexual Orientation Not on file documented as of this encounter Plan of Treatment Not on file documented as of this encounter Procedures Procedure Name Priority Date/Time Associated Diagnosis Comments DERMATOPATHOLOGY Routine 08/07/2018 12:0 0 AM DRY CHARGE PROCESS ATTENDANT documented in this encounter Results * DERMATOPATHOLOGY (08/07/2018 12:00 AM DRY CHARGE PROCESS ATTENDANT) Case Report Dermatopathology Report Case: [id number] Authorizing Provider: Tommy Young MD Collected: 08/07/2018 12:00 AM Pathologist: Elham Tejada MD Received: 08/08/2018 12:31 PM Specimens: A) - Skin, left of midline post vertex at hairline B) - Skin, midline crown parietal vertex C) - Skin, right parietal scalp @ hairline 9 1:52 PM DRY CHARGE PROCESS ATTENDANT DERMATOPATHOLOGY LABORATORY Final Diagnosis Specimen A. SKIN, [...] (D04.4) BENIGN VERRUCOUS KERATOSIS (L82.1) 1:52 PM [facility] DERMATOPATHOLOGY LABORATORY at 1352 DRY CHARGE PROCESS ATTENDANT Clinical History A: R/O SCC. B: R/O SCCIS. C: R/O SCC vs SCCIS. 1:52 PM [facility] DERMATOPATHOLOGY LABORATORY Gross Description Specimen A: Received is one formalin filled container labeled with the patient's name and designated left of midline post vertex at hairline. The specimen consists of a shave biopsy (2 pieces) measuring 85o75x8ow, trisected, & 47c5y1uz. Jar 0+. Specimen B: Received is one formalin filled container labeled with the patient's name and designated midline crown parietal vertex. The specimen consists of a shave biopsy (2 pieces) measuring 19q65w0ab & 11x7x3 mm. Jar 0+. Specimen C: Received is one formalin filled container labeled with the patient's name and designated right parietal scalp @ hairline. The specimen consists of a shave biopsy measuring 7a7v2dd. Jar 0+. 1:52 PM [facility] DERMATOPATHOLOGY LABORATORY Microscopic Description Specimen A. SKIN, [...] vulgaris or a seborrheic keratosis. 1:52 PM [facility] DERMATOPATHOLOGY LABORATORY Disclaimer An external and internal positive and negative controls are appropriate for the histochemical, immunohistochemical and immunofluorescence stain(s) in this case (if any), except where stated explicitly. The performance characteristics of the stain(s) cited in this report were developed and its performance characteristic determined by the Dermatopathology Laboratory at [facility], directed by Dr. Ronen Ye. These tests need not be, and therefore are not, approved by the [place] Food and Drug Administration. The tests are used for clinical purposes. Billing Codes Specimen Charges Stain Charges 11415 67873 53882 1 1 1 9 1:52 PM DRY CHARGE PROCESS ATTENDANT DERMATOPATHOLOGY LABORATORY Embedded Images 9 1:52 PM DRY CHARGE PROCESS ATTENDANT DERMATOPATHOLOGY LABORATORY Pathology/Cytology TISSUE SPECIMEN FROM SKIN / Unknown 08/07/2018 08/08/2018 12:31 PM DRY CHARGE PROCESS ATTENDANT Miscellaneous samples (specimen) TISSUE SPECIMEN FROM SKIN / Unknown 08/07/2018 08/08/2018 12:31 PM DRY CHARGE PROCESS ATTENDANT Miscellaneous samples (specimen) TISSUE SPECIMEN FROM SKIN / Unknown 08/07/2018 08/08/2018 12:31 PM DRY CHARGE PROCESS ATTENDANT us Tommy Young MD LAB - PATHOLOGY/CYTOLOGY ORD ERABLES Final Result DERMATOPATHOLOGY LABORATORY [facility] - Department of Dermatology [address] [facility], 5th [place] [address], [facility] [phone] documented in this encounter Visit Diagnoses Not on filedocumented in this encounter
--- OUTSIDE RECORDS SUMMARY | 2025-03-13 10:02 | XMS_ITS | Encounter Summary ---
Author Organization [facility] Address [address] [place] [address] Care Team Providers Care Sales Account Manager Name Role Phone Unavailable Primary Care Provider Unavailabl e Encounter Details Date Type Department Care Team (Late st Contact Info) Description 05/11/2022 Lab Requisition [facility] DermPath Lab [address] [place] [address] Tommy Young MD [address] [place] [address] Social History Tobacco Use Types Packs/Day Years Used Date Smoking Tobacco: Never Assessed Comments Unknown Sex and Gender Information Value Date Recorded Sex Assigned at Not on file 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 Gender Identity Not on file Sexual Orientation Not on file documented as of this encounter Plan of Treatment Not on file documented as of this encounter Procedures Procedure Name Priority Date/Time Associated Diagnosis Comments DERMATOPATHOLOGY Routine 05/10/2022 12:0 0 AM INJECTION PRESS OPERATOR documented in this encounter Results * DERMATOPATHOLOGY (05/10/2022 12:00 AM INJECTION PRESS OPERATOR) Case Report Dermatopathology Report Case: [id number] Authorizing Provider: Tommy Young MD Collected: 05/10/2022 12:00 AM Ordering Location: [facility] DermPath Lab Received: 05/11/2022 12:55 PM Pathologist: Matilda Matthews MD Specimens: A) - Skin, frontal midline scalp B) - Skin, right parietal scalp C) - Skin, midline parietal scalp D) - Skin, left of midline parietal scalp E) - Skin, left parietal scalp 2:47 PM INJECTION PRESS OPERATOR DERMATOPATHOLOGY LABORATORY Final Diagnosis Specimen A. [...] (D04.4) DERMAL FIBROSIS (L90.5) (see microscopic description) 2 2:47 PM [facility] DERMATOPATHOLOGY LABORATORY at 1447 [facility] Clinical History A-E: R/O SCC, CONNER'S 2 2:47 PM [facility] DERMATOPATHOLOGY LABORATORY Gross Description Specimen A: Received is one formalin filled container labeled with the patient's name and designated frontal midline scalp. The specimen consists of a shave biopsy measuring 15z88w3 mm. Jar 0. Specimen B: Received is one formalin filled container labeled with the patient's name and designated right parietal scalp. The specimen consists of a shave biopsy measuring 71q65h7 mm. Jar 0. Specimen C: Received is one formalin filled container labeled with the patient's name and designated midline parietal scalp. The specimen consists of a shave biopsy measuring 25b53f7 mm. Jar 0. Specimen D: Received is one formalin filled container labeled with the patient's name and designated left of midline parietal scalp. The specimen consists of a shave biopsy measuring 44v23t0 mm. Jar 0. Specimen E: Received is one formalin filled container labeled with the patient's name and designated left parietal scalp. The specimen consists of a shave biopsy measuring 8x7x1 mm. Jar 0. 2 2:47 PM [facility] DERMATOPATHOLOGY LABORATORY Microscopic Description Specimen A. [...] is focal dermal fibrosis. 2 2:47 PM [facility] DERMATOPATHOLOGY LABORATORY Disclaimer An external and internal positive and negative controls are appropriate for the histochemical, immunohistochemical and immunofluorescence stain(s) in this case (if any), except where stated explicitly. The performance characteristics of the stain(s) cited in this report were developed and its performance characteristic determined by the Dermatopathology Laboratory at [facility], directed by Dr. Ronen Ye. These tests need not be, and therefore are not, approved by the [place] Food and Drug Administration. The tests are used for clinical purposes. Billing Codes Specimen Charges Stain Charges 26035 90296 40423 75867 76026 1 1 1 1 1 2 2:47 PM [facility] DERMATOPATHOLOGY LABORATORY Embedded Images 2 2:47 PM [facility] DERMATOPATHOLOGY LABORATORY Pathology/Cytology TISSUE SPECIMEN FROM SKIN / Unknown 05/10/2022 05/11/2022 12:55 PM INJECTION PRESS OPERATOR Miscellaneous samples (specimen) TISSUE SPECIMEN FROM SKIN / Unknown 05/10/2022 05/11/2022 12:55 PM INJECTION PRESS OPERATOR Miscellaneous samples (specimen) TISSUE SPECIMEN FROM SKIN / Unknown 05/10/2022 05/11/2022 12:55 PM INJECTION PRESS OPERATOR Miscellaneous samples (specimen) TISSUE SPECIMEN FROM SKIN / Unknown 05/10/2022 05/11/2022 12:55 PM INJECTION PRESS OPERATOR Miscellaneous samples (specimen) TISSUE SPECIMEN FROM SKIN / Unknown 05/10/2022 05/11/2022 12:55 PM INJECTION PRESS OPERATOR Tommy Young MD LAB - PATHOLOGY/CYTOLOGY ORD ERABLES Final Result DERMATOPATHOLOGY LABORATORY [facility] - Department of Dermatology [facility] Medicine [address] [place] [address], [address] [phone] documented in this encounter Visit Diagnoses Not on filedocumented in this encounter
--- OUTSIDE RECORDS SUMMARY | 2025-03-13 10:03 | XMS_ITS | Clinical Summary ---
Author Organization [facility] Address [address] [place] [address] Care Team Providers Care Manager Corporate Name Role Phone DeborahscottyJose merchant Garrett Primary [...] 9:40 AM CDT Height 165.1 cm (5' 5) 03/28/2019 9:40 AM CDT Body Mass Index 20.62 03/28/2019 9:40 AM CDT Plan of Treatment Health Maintenance Due Date Last Done Comments DTAP/TDAP/TD VACCINES (1 - Tdap) 10[birth year]02/1954 PNEUMOCOCCAL VACCINE 50+ YEARS (1 of 1 - PCV) 10/02/18 86 ZOSTER VACCINE (1 of 2) 10/02/1985 OSTEOPOROSIS SCREENING 10/02/2000 RSV VACCINE (60+ or ) (1 - 1-dose 75+ series) 10/02/2010 INFLUENZA VACCINE (#1) 2025 Insurance [facility] Care Teams Manager Corporate Relationship Specialty Start Date End Date Jose Mark DO [address] [phone] PCP - General Internal Medicine 03/22/18
--- OUTSIDE RECORDS SUMMARY | 2025-03-13 10:03 | XMS_ITS | Encounter Summary ---
Author Organization [facility] Address [address] [place] [address] Care Team Providers Care Offbearer Name Role Phone Unavailable Primary Care Provider Unavailabl e Encounter Details Date Type Department Care Team (Late st Contact Info) Description 06/21/2023 Lab Requisition [facility] - DermPath Lab [address] [place] [phone] Tommy Young MD [address] [place] [address] Social History Tobacco Use Types Packs/Day Years Used Date Smoking Tobacco: Never Assessed Comments Unknown Sex and Gender Information Value Date Recorded Sex Assigned at Not on file Legal Sex Female 5:42 PM [employer]ATE[employer] ANALYSIS Gender Identity Not on file Sexual Orientation Not on file documented as of this encounter Plan of Treatment Not on file documented as of this encounter Procedures Procedure Name Priority Date/Time Associated Diagnosis Comments DERMATOPATHOLOGY Routine 06/20/2023 3:33 AM [employer] STRATEGIC ANALYSIS documented in this encounter Results * DERMATOPATHOLOGY (06/20/2023 3:33 AM [employer] AND STRATEGIC ANALYSIS) Case Report Dermatopathology Report Case: [id number] Authorizing Provider: Tommy Young MD Collected: 06/20/2023 03:33 AM Ordering Location: [facility] DermPath Lab Received: 06/22/2023 07:03 AM Pathologist: Batsheva Matthews MD Specimens: A) - Skin, superior midline nasal bulb B) - Skin, right of midline superior nasal bulb 2:57 PM [employer]ATE[employer] ANALYSIS DERMATOPATHOLOGY LABORATORY Final Diagnosis Specimen A. 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 Rosacea 4 2:57 PM [facility] [email or web address]] DERMATOPATHOLOGY LABORATORY Gross Description Specimen A: Received [...] measuring 4x4x1 mm. Jar 0. 2:57 PM [facility] [[email or web address]] DERMATOPATHOLOGY LABORATORY Microscopic Description Specimen A. SKIN, [...] context. Clinicopathologic correlation is recommended. 2:57 PM [facility] [[email or web address]] DERMATOPATHOLOGY LABORATORY Disclaimer An external and internal positive and negative controls are appropriate for the histochemical, immunohistochemical and immunofluorescence stain(s) in this case (if any), except where stated explicitly. The performance characteristics of the stain(s) cited in this report were developed and its performance characteristic determined by the Dermatopathology Laboratory at [facility], directed by Dr. Ronen Ye. These tests need not be, and therefore are not, approved by the [place] Food and Drug Administration. The tests are used for clinical purposes. Billing Codes Specimen Charges Stain Charges 13495 10967 1 1 4 2:57 PM [facility] [[email or web address]] DERMATOPATHOLOGY LABORATORY Embedded Images 2:57 PM [facility] [[email or web address]] DERMATOPATHOLOGY LABORATORY Pathology/Cytology TISSUE SPECIMEN FROM SKIN / Unknown 06/20/2023 3:33 AM [employer]ATEGIC ANALYSIS 06/22/2023 7:03 AM [employer] STRATEGIC ANALYSIS Miscellaneous samples (specimen) TISSUE SPECIMEN FROM SKIN / Unknown 06/20/2023 3:33 AM [employer] STRATEGIC ANALYSIS 06/22/2023 7:03 AM [employer] STRATEGIC ANALYSIS us Tommy Young MD LAB - PATHOLOGY/CYTOLOGY ORD ERABLES Final Result DERMATOPATHOLOGY LABORATORY [facility] - Department of Dermatology [facility] Medicine [address] [place] [address], [address] [phone] documented in this encounter Visit Diagnoses Not on filedocumented in this encounter
--- OUTSIDE RECORDS SUMMARY | 2025-03-13 10:03 | XMS_ITS | Encounter Summary ---
Author Organization [facility] Address [address] [place] [address] Care Team Providers Care Design Director Name Role Phone Unavailable Primary Care Provider Unavailabl e Encounter Details Date Type Department Care Team (Late st Contact Info) Description 03/06/2023 Lab Requisition [facility] - DermPath Lab [address] [place] [phone] Guerita Matthews MD [address] [place] [address] Social History Tobacco Use Types Packs/Day Years Used Date Smoking Tobacco: Never Assessed Comments Unknown Sex and Gender Information Value Date Recorded Sex Assigned at Not on file 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 Gender Identity Not on file Sexual Orientation Not on file documented as of this encounter Plan of Treatment Not on file documented as of this encounter Procedures Procedure Name Priority Date/Time Associated Diagnosis Comments DERMATOPATHOLOGY Routine 03/06/2023 2:33 PM CDT documented in this encounter Results * DERMATOPATHOLOGY (03/06/2023 2:33 PM CDT) Case Report Dermatopathology Report Case: [id number] Authorizing Provider: Guerita Matthews MD Collected: 03/06/2023 02:33 PM Ordering Location: [facility] DermPath Lab Received: 03/07/2023 02:20 PM Pathologist: Shani Spangler MD Specimen: Skin, left post base of neck 3 3:12 PM CDT DERMATOPATHOLOGY LABORATORY Final Diagnosis Specimen A. 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 Jar 0. 3 3:12 PM CDT DERMATOPATHOLOGY LABORATORY Microscopic Description Specimen [...] to the skin surface. 3 3:12 PM CDT DERMATOPATHOLOGY LABORATORY Disclaimer An external and internal positive and negative controls are appropriate for the histochemical, immunohistochemical and immunofluorescence stain(s) in this case (if any), except where stated explicitly. The performance characteristics of the stain(s) cited in this report were developed and its performance characteristic determined by the Dermatopathology Laboratory at [facility], directed by Dr. Ronen Ye. These tests need not be, and therefore are not, approved by the [place] Food and Drug Administration. The tests are used for clinical purposes. Billing Codes Specimen Charges Stain Charges 53069 1 3 3:12 PM CDT DERMATOPATHOLOGY LABORATORY Embedded Images 3 3:12 PM CDT DERMATOPATHOLOGY LABORATORY Pathology/Cytolo gy TISSUE SPECIMEN FROM SKIN / Unknown 03/06/2023 2:33 PM CDT 03/07/2023 2:20 PM CDT us Guerita Matthews MD LAB - PATHOLOGY/CYTOLOGY ORDERA BLES Final Result DERMATOPATHOLOGY LABORATORY [facility] - Department of Dermatology [facility] [address] [place] [address], [address] [phone] documented in this encounter Visit Diagnoses Not on filedocumented in this encounter
--- OUTSIDE RECORDS SUMMARY | 2025-03-13 10:03 | XMS_ITS | Encounter Summary ---
Author Organization [facility] Address [address] [address] [place] [address] Care Team Providers Care Semiconductor Packages Sealer Name Role Phone Unavailable Primary Care Provider Unavailabl e Encounter Details Date Type Department Care Team (Late st Contact Info) Description 04/26/2024 Lab Requisition [facility] - DermPath Lab [address] [place] [phone] Tommy Young MD [address] [place], [place] [id number] Social History Tobacco Use Types Packs/Day Years Used Date Smoking Tobacco: Never Assessed Comments Unknown Sex and Gender Information Value Date Recorded Sex Assigned at Not on file Legal Sex Female 5:42 PM GUNCOTTON PACKER Gender Identity Not on file Sexual Orientation Not on file documented as of this encounter Plan of Treatment Not on file documented as of this encounter Procedures Procedure Name Priority Date/Time Associated Diagnosis Comments DERMATOPATHOLOGY Routine 04/24/2024 3:33 AM GUNCOTTON PACKER documented in this encounter Results * DERMATOPATHOLOGY (04/24/2024 3:33 AM GUNCOTTON PACKER) Case Report Dermatopathology Report Case: [id number] Authorizing Provider: Tommy Young MD Collected: 04/24/2024 03:33 AM Ordering Location: [facility] - Received: 04/26/2024 03:23 PM DermPath Lab Pathologist: Matilda Matthews MD Specimen: Skin, left lateral buttock 4 1:27 PM [employer]OT[employer] PACKER DERMATOPATHOLOGY LABORATORY Final Diagnosis Specimen A. 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 Check margins 4 1:27 PM [facility] DERMATOPATHOLOGY [...] determined by the Dermatopathology Laboratory at [facility], directed by Dr. Ronen Ye. These tests need not be, and therefore are not, approved by the [place] Food and Drug Administration. The tests are used for clinical purposes. Billing Codes Specimen Charges Stain Charges 19213 1 4 1:27 PM [facility] DERMATOPATHOLOGY LABORATORY Embedded Images 4 1:27 PM [facility] DERMATOPATHOLOGY LABORATORY Pathology/Cytolo gy TISSUE SPECIMEN FROM SKIN / Unknown 04/24/2024 3:33 AM GUNCOTTON PACKER 04/26/2024 3:23 PM [facility] Tommy Young MD LAB - PATHOLOGY/CYTOLOGY ORD ERABLES Final Result DERMATOPATHOLOGY LABORATORY [facility] - Department of Dermatology [address], [address] [phone] documented in this encounter Visit Diagnoses Not on filedocumented in this encounter
[2025-03-13 13:00] LABS: Hematocrit 41.4 % (37.0-47.0); Hemoglobin 13.4 g/dL (12.0-15.0); Immature Granulocyte Percent A 0.4 % (0-0.5); Lymphocytes Absolute Auto 1.00 K/mm3 (0.9-3.2); Mean Corpuscular HGB Conc 32.4 g/dl (32-36); Mean Corpuscular Hemoglobin 29.8 pg (26-34); Mean Corpuscular Volume 92.2 fl (80-100); Nucleated Red Blood Cells Absolute Auto 0.000 K/mm3 (0.0-0.012); Nucleated Red Blood Cells Perc 0.0 % (0.0-0.2); Platelet Count Result 221 k/mm3 (150-375); Red Blood Count 4.49 M/mm3 (4.2-5.4); White Blood Count 8.4 K/mm3 (4.5-10.0)
[2025-03-13 13:09] LABS: Alanine Aminotransferase 14 U/L (6-35); Albumin Level 3.9 g/dL (3.5-5.1); Alkaline Phosphatase 73 U/L (38-126); Anion Gap 5 mmol/L (4-12); Aspartate Amino Transferase 54 U/L (14-36); Bilirubin,Total 0.8 mg/dL (0.2-1.3); Blood Urea Nitrogen 17 mg/dL (7-17); Calcium 9.5 mg/dL (8.4-10.2); Carbon Dioxide 32 mmol/L (22-30); Chloride 100 mmol/L (98-107); Estimated Glomerular Filt Rate 55; Glucose 108 mg/dL (65-110); Potassium 4.1 mmol/L (3.4-5.0); Sodium 137 mmol/L (137-145); Total Protein 7.1 g/dL (6.3-8.2)
[2025-03-13 13:12] LABS: Cholesterol 174 mg/dL (0-200); HDL Direct 68 mg/dL; Triglycerides 109 mg/dL (<150)
== END 2025-03-13 09:33 | disposition home or self-care (01) ==
LOC: ANHGOSHLAB 09:33
PROVIDERS: PCP Nurse Practitioner; Visit Provider Internal Medicine Cardiovascular Disease
DX: E78.5 Hyperlipidemia, unspecified (principal); I10 Essential (primary) hypertension; E55.9 Vitamin D deficiency, unspecified
CPT/HCPCS: 36415; 80053; 80061; 82306; 85025